=== PATIENT | female | born 1935 | race Caucasian/White ===

== ENCOUNTER → 2016-11-17 | Outpatient (CLI) | payer OTHER, BC ==
[~2016-11-17] MED LIST: ASCO500T16 PO; ASPI81TA21 PO; HYDR-5688 PO; LOSA100T2 PO; MULT-614 PO; MULT-768 PO; NAPR1TAB9 PO; PRAV20TA PO; [UNRECOGNIZED DRUG - CODE] PO
--- NOTE | 2016-11-17 15:29 | MAMMOGRAPHY REPORT ---
BILATERAL DIGITAL SCREENING MAMMOGRAM TOMOSYNTHESIS WITH CAD: 11/17/2016 CLINICAL HISTORY: Routine screening. Patient has no complaints. TECHNIQUE: Breast tomosynthesis in addition to standard 2D mammography was performed. Current study was also evaluated with a Computer Aided Detection (CAD) system. COMPARISON: Comparison is made to exams dated: 12/01/2015 mammogram, 11/17/2015 mammogram, 11/13/2014 mammogram, 11/12/2013 mammogram, 09/27/2012 mammogram, and 09/27/2011 mammogram - [facility] nter. BREAST COMPOSITION: The tissue of both breasts is almost entirely fatty. FINDINGS: No suspicious masses, calcifications, or areas of architectural distortion are noted in ei ther breast. There has been no significant interval change compared to prior exams. IMPRESSION: ACR BI-RADS CATEGORY 1: NEGATIVE There is no mammographic evidence of malignancy. A 1 year screening mammogram is recommended. The pa tient will receive written notification of the results. Approximately 10% of breast cancers are not detected with mammography. A negative mammographic report should not delay biopsy if a clinically suggestive mass is present. Irish Ramos M.D. /:11/17/2016 14:21:37 Large Animal Veterinarian: Betty LOPEZ(Kate)(M), [facility] letter sent: Normal 1/2 BI-RADS Code: ACR BI-RADS Category 1: Negative
== END | disposition home or self-care (01) ==
LOC: C.MAMM 13:20
PROVIDERS: ATTEND Family Medicine
DX: Z12.31 Encounter for screening mammogram for malignant neoplasm of breast (principal)

== ENCOUNTER → 2017-02-08 | Outpatient (CLI) | payer OTHER, BC ==
--- NOTE | 2017-02-08 11:11 | DIAGNOSTIC IMAGING REPORT ---
CHEST 2 VIEWS ROUTINE HISTORY: ACUTE SINUSITIS COMPARISON: Chest 10/02/2013. FINDINGS: The lungs are clear. Cardiac silhouette is normal in size. No pleural effusions. No pneumothorax. IMPRESSION: No acute process. Electronically signed by: Margarito Hung M.D. 02/08/2017 11:09 AM Dictated Date/Time: 02/08/2017 11:07 AM
== END | disposition home or self-care (01) ==
LOC: C.RADBC 10:29
PROVIDERS: ATTEND Family Medicine
DX: J01.90 Acute sinusitis, unspecified (principal)

== ENCOUNTER 2021-11-18 08:48 | Observation (INO) ==
--- NOTE | 2021-11-18 09:07 | Emergency Department Note ---
Impression & Plan Elevated troponin I level, Dyspnea, Acute hypokalemia ED Provider Note NAME: GILMAR CRUZ AGE: 86 SEX: F : 1935 ARRIVES VIA: Walk-In INFORMANT: [Patient][, ] ED PROVIDER(S): [Canelo Ortega MD] Chief Complaint: Shortness of breath, elevated heart rate, outpatient referral patient presents at the behest of her outpatient HPI: GI office Dr. Brandt due to concern for shortness of breath and tachycardia. Patient states that she first developed symptoms may be around midnight this morning but did not think much of it went back to bed but when she was up around 5 she did have some shortness of breath and noticed her heart rate to be in the 130s. Patient [place] any fevers chills or chest pains. Patient does feel better than before. The patient has been undergoing bland soft diet primarily bouillon Jell-O and water in addition to bowel prep as the patient was to have a pending colonoscopy completed for bloating with Dr. Brandt today at 1 PM with [facility]. Patient denies any alcohol or tobacco use or upper respiratory symptoms of infectious nature. Patient denies any leg swelling or calf pain. No prior history of lung disease. The patient did have a cardiac ablation completed 2 months ago at [facility] with Dr. Olea. Patient denies any other acute symptoms at this time. The patient does relate that she did have a recent left foot fracture and has been wearing shoe but denies any calf pain. ROS: See HPI for pertinent positives and negatives. A total of 10 systems were reviewed and otherwise negative. Past medical history: See below Surgical history: See below Social history: See below Physical Exam: GENERAL: NAD, [wearing a mask,] non-toxic. EYE EXAM: Normal conjunctiva. PERRL, no anisocoria and EOM's grossly intact w/o pain. NECK: Supple, no nuchal rigidity, no adenopathy, non-tender. No signs of meningismus. FROM of the neck with good chin to chest and neck extension. No stridor. LUNGS: Clear to auscultation. Normal chest wall mechanics. HEART: NSR, no MRG. ABDOMEN: Abdomen soft, non-tender, normo-active bowel sounds, no masses, no rebound or guarding. BACK: No CVA TTP. SKIN: No rashes and no bruising. UPPER EXTREMITIES: Upper extremities are grossly normal. LOWER EXTREMITIES: Grossly normal, no edema. NEURO EXAM: A&O x3, cranial nerves II-XII grossly intact, normal speech, moves all 4 extremities. Differential diagnoses: Reactive airway disease, pneumonia, pneumothorax, COPD, CHF, infections, cardiac ischemia, pulmonary embolism, musculoskeletal, gastrointestinal, as well as other pathologies. Course: Patient was seen and evaluated the bedside. Full history physical exam was performed. EKG interpreted by me Sinus with first-degree AV block, rate of 93, prolonged [place], normal QRS, normal axis, no obvious ST elevations. Imaging Studies: See Below Cardiac monitoring: An order was placed for continuous cardiac monitoring. The monitor shows a rate of 77 with sinus rhythm. MDM: Patient presents due to concern for shortness of breath and tachycardia. Blood work is obtained the patient was given IV fluids. EKG also obtained along with chest x-ray. I did consider the possibility of DVT given the patient's recent procedure as recent foot fracture so a DVT ultrasound was obtained. Patient does not have any evidence of obvious DVT i.e. asymmetric leg swelling or calf pain at this time. Physical exam is not consistent with aneurysm or dissection. The patient was nontachycardic at the time of presentation. IV fluids were given as the patient may have an element of decreased p.o. intake in addition to the bowel prep causing some associated dehydration this was required prior for her colonoscopy to be performed. Patient's blood work showed a normal white count H&H and platelet count. The patient's kidney function is unremarkable. Mild hypokalemia at 3.2. Patient's urinalysis does not show evidence of obvious infection. Patient's troponin is detectable and the patient's had a prior which was negative. 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 Unsure as whether or not she could have had another run or some sort of arrhythmia that might of caused a slight increase in her troponin but the patient is currently asymptomatic at this time. Chest x-ray was negative. Patient had a negative DVT ultrasound. I did speak the on-call spitalist Dr. Ruff and the patient was admitted to the medicine service. Past Med/Surg History Medical History (Updated 11/18/21 @ 14:29 by Canelo Ortega MD) Arrhythmia "SKIPS BEATS"-f/u dr garber, ps Asthma pt denies; MILD, NO INH Autoimmune disorder NON-SPECIFIC Degenerative disc disease False positive HIV serology Frequent UTI "have them once in awhile" History of COVID-19 05/2021, tested-at [place], she had same symptoms; not hosp; fatigue, cough-lasted 3 weeks>resolved. History of endometriosis Hx of fracture of foot broken 11/11/21, lt foot, currently using a walker Hypertension "described as uncontrolled" Nocturia Urinary urgency Surgical History Difficult airway for intubation REPORTS NEEDED PEDIATRIC ETT FOR PRIOR SURGERY-"very long time ago" History of adenoidectomy History of appendectomy History of arthroscopy LEFT KNEE History of bilateral tubal ligation History of cardiac cath 2015 - [facility] - FAILED STRESS TEST - NO STENTS/ANGIOPLASTY; f/u dr garber, ps History of cardiac radiofrequency ablation 09/21/2021, [place]; f/u dr garber History of cataract surgery Rt./lt. History of colonoscopy History of dilatation and curettage History of tonsillectomy History of tooth extraction Hx of resection of small bowel "done with hysterectomy" Hx of total hysterectomy with removal of both tubes and ovaries Social History Smoking Status: Never smoker Second Hand Exposure: No; Hx Alcohol Use: Yes Alcohol type: wine and hard liquor Hx Substance Use: No Preferred Language: Mohawk Communication Ability: Effective Slab Inspector Required: No Beliefs That Will Affect Care: None Current Living Situation: Spouse Feels Safe at Home: Yes Assistive Devices: Glasses and Walker Allergies Allergies Allergy/AdvReac Type Severity Reaction Status Date / Time cephalexin [From Keflex] Allergy Intermediate Rash Verified 11/13/21 08:20 Iodinated Contrast Media Allergy Intermediate Rash Verified 11/13/21 08:20 Home Meds Home Medications Medication Instructions Recorded Confirmed [facility] 1 tab PO QAM 12/20/17 11/18/21 ascorbic acid (vitamin C) 1,000 mg 1 g PO QAM 12/20/17 11/18/21 tablet (Vitamin C) aspirin 81 mg tablet,delayed 81 mg PO QPM 12/20/17 11/18/21 release glucosamine 1 dose PO BID 12/20/17 11/18/21 HCl-methylsulfonylmethane 1,500 mg-500 mg/30 mL liquid (Glucosamine Msm) hydrochlorothiazide 25 mg tablet 25 mg PO QAM 12/20/17 11/18/21 multivitamin 1 tab PO QAM 12/20/17 11/18/21 pravastatin 10 mg tablet 10 mg PO HS 12/20/17 11/18/21 loperamide 2 mg capsule 2 mg PO Q4H PRN Diarrhea 11/13/21 11/18/21 omeprazole 20 mg capsule,delayed 20 mg PO QAM 11/13/21 11/18/21 release oxybutynin chloride 5 mg tablet 5 mg PO HS 11/13/21 11/18/21 diltiazem HCl 120 mg 120 mg PO DAILY 11/18/21 11/18/21 capsule,extended release 24 hr (Cardizem CD) Results & Data (ED) Vital Signs Vital Signs - 24 hr 11/18/21 08:55 11/18/21 09:08 11/18/21 09:09 Temperature 36.1 C L Temperature Source Temporal Artery Scan Pulse Rate 94 H Pulse Rate [Left Apical] 88 Pulse Rhythm [Left Apical] Regular Pulse Strength [Left Apical] Normal Respiratory Rate 20 16 Respiratory Effort / Characteristics Non-Labored Spontaneous Non-Labored Spontaneous Respiratory Depth Normal Normal Respiratory Pattern Regular Blood Pressure 141/87 H Blood Pressure [Left Arm] 143/96 H Blood Pressure Mean 105 Blood Pressure Mean [Left Arm] 111 Pulse Oximetry 100 100 Oxygen Delivery Method Room Air Room Air Room Air Sepsis Recent Fever Within 48 Hours No Sepsis New/Unexplained Change in Mental Status No Sepsis Action Taken by Nursing No Action Required 11/18/21 09:17 11/18/21 11:42 11/18/21 13:08 Temperature Temperature Source Pulse Rate Pulse Rate [Left Apical] 63 74 Pulse Rhythm [Left Apical] Pulse Strength [Left Apical] Respiratory Rate 16 16 Respiratory Effort / Characteristics Respiratory Depth Respiratory Pattern Blood Pressure Blood Pressure [Left Arm] 145/96 H 193/82 H Blood Pressure Mean Blood Pressure Mean [Left Arm] 112 119 Pulse Oximetry 100 100 96 Oxygen Delivery Method Room Air Sepsis Recent Fever Within 48 Hours Sepsis New/Unexplained Change in Mental Status Sepsis Action Taken by Residential Medications Current Medication List: was personally reviewed by me Laboratory Data Attestation: I reviewed the patient's lab results. Result diagrams: 11/18/21 09:18 11/18/21 09:18 Lab Results 11/18/21 11/18/21 11/18/21 Range/Units 09:18 09:18 13:05 WBC 6.07 (4.8-10.8) K/ul RBC 4.41 (3.93-5.22) M/uL Hgb 14.0 (12.0-16.0) g/dl Hct 39.6 (34.1-44.9) % MCV 89.8 (80.0-100.0) fL MCH 31.7 (25.0-34.0) pg MCHC 35.4 (32.0-36.0) g/dL RDW Std Deviation 39.0 (36.4-46.3) fL RDW Coeff of [place] 11.9 (11.5-14.5) % Plt Count 385 (130-400) K/uL MPV 8.8 L (9.4-12.3) fL Immature Gran % (Auto) 0.3 % Neut % (Auto) 55.1 % Lymph % (Auto) 35.4 % [place] % (Auto) 7.4 % Eos % (Auto) 0.8 % Baso % (Auto) 1.0 % Neut # (Auto) 3.34 (1.4-6.5) K/uL Lymph # (Auto) 2.15 (1.2-3.4) K/uL [place] # (Auto) 0.45 (0.24-0.82) K/uL Eos # (Auto) 0.05 (0-0.50) K/uL Baso # (Auto) 0.06 (0-0.2) K/uL Immature Gran # (Auto) 0.02 (0.00-0.02) K/uL Sodium 138 (136-145) mmol/L Potassium 3.2 L (3.5-5.1) mmol/L Chloride 103 (98-107) mmol/L Carbon Dioxide 25 (21-32) mmol/L Anion Gap 10 (3-11) BUN 11 (6-23) mg/dl Creatinine 0.82 (0.6-1.2) mg/dl Est Cr Clr Drug Dosing 49.7 ml/min Est GFR ( Amer) 76.2 ml/min Est GFR (Non-Af Amer) 65.7 ml/min BUN/Creatinine Ratio 13.4 (10-20) Glucose 113 H (70-99(Fasting)) mg/dl Calcium 9.4 (8.5-10.1) mg/dl Magnesium 1.8 (1.7-2.4) mg/dl Total Bilirubin 0.8 (0.2-1.0) mg/dl AST 14 (13-39) U/L ALT 12 (7-52) U/L Alkaline Phosphatase 58 (34-104) U/L Troponin I High Sens 21.5 H D (0-14) pg/ml Total Protein 7.2 (6.0-8.3) gm/dl Albumin 3.9 (3.4-5.0) gm/dl Globulin 3.3 (2.5-4.0) gm/dl Albumin/Globulin Ratio 1.2 (0.9-2) Urine Color Yellow Urine Appearance Clear (Clear) Urine pH 6.0 (4.5-7.5) Ur Specific [place] 1.004 (1.000-1.030) Urine Protein Negative (Negative) Urine Glucose (UA) Negative (Negative) Urine Ketones Trace H (Negative) Urine Blood Trace H (Negative) Urine Nitrite Negative (Negative) Urine Bilirubin Negative (Negative) Urine Urobilinogen Negative (Negative) Ur Leukocyte Esterase Trace H (Negative) Urine WBC (Auto) 1-5 (0-5) /hpf Urine RBC (Auto) 0-4 (0-4) /hpf U Hyaline Cast (Auto) 0 (0-5) /lpf U Epithel Cells (Auto) 5-10 H (0-5) /lpf Urine Bacteria (Auto) Negative (Negative) SARS-CoV-2, RNA, NAAT (NEGATIVE) 11/18/21 Range/Units Unknown WBC (4.8-10.8) K/ul RBC (3.93-5.22) M/uL Hgb (12.0-16.0) g/dl Hct (34.1-44.9) % MCV (80.0-100.0) fL MCH (25.0-34.0) pg MCHC (32.0-36.0) g/dL RDW Std Deviation (36.4-46.3) fL RDW Coeff of [place] (11.5-14.5) % Plt Count (130-400) K/uL MPV (9.4-12.3) fL Immature Gran % (Auto) % Neut % (Auto) % Lymph % (Auto) % [place] % (Auto) % Eos % (Auto) % Baso % (Auto) % Neut # (Auto) (1.4-6.5) K/uL Lymph # (Auto) (1.2-3.4) K/uL [place] # (Auto) (0.24-0.82) K/uL Eos # (Auto) (0-0.50) K/uL Baso # (Auto) (0-0.2) K/uL Immature Gran # (Auto) (0.00-0.02) K/uL Sodium (136-145) mmol/L Potassium (3.5-5.1) mmol/L Chloride (98-107) mmol/L Carbon Dioxide (21-32) mmol/L Anion Gap (3-11) BUN (6-23) mg/dl Creatinine (0.6-1.2) mg/dl Est Cr Clr Drug Dosing ml/min Est GFR ( Amer) ml/min Est GFR (Non-Af Amer) ml/min BUN/Creatinine Ratio (10-20) Glucose (70-99(Fasting)) mg/dl Calcium (8.5-10.1) mg/dl Magnesium (1.7-2.4) mg/dl Total Bilirubin (0.2-1.0) mg/dl AST (13-39) U/L ALT (7-52) U/L Alkaline Phosphatase (34-104) U/L Troponin I High Sens (0-14) pg/ml Total Protein (6.0-8.3) gm/dl Albumin (3.4-5.0) gm/dl Globulin (2.5-4.0) gm/dl Albumin/Globulin Ratio (0.9-2) Urine Color Urine Appearance (Clear) Urine pH (4.5-7.5) Ur Specific [place] (1.000-1.030) Urine Protein (Negative) Urine Glucose (UA) (Negative) Urine Ketones (Negative) Urine Blood (Negative) Urine Nitrite (Negative) Urine Bilirubin (Negative) Urine Urobilinogen (Negative) Ur Leukocyte Esterase (Negative) Urine WBC (Auto) (0-5) /hpf Urine RBC (Auto) (0-4) /hpf U Hyaline Cast (Auto) (0-5) /lpf U Epithel Cells (Auto) (0-5) /lpf Urine Bacteria (Auto) (Negative) SARS-CoV-2, RNA, NAAT NEGATIVE (NEGATIVE) Administered Medications Discontinued Medications Sodium Chloride (Nss 1000ml) 1,000 mls @ 999 mls/hr IV .[id number] RAFI Stop: 11/18/21 10:15 Last Infusion: 11/18/21 12:44 Dose: 0 mls/hr Documented By: Admin: 11/18/21 09:17 Dose: 999 mls/hr Documented By: LIVE Imaging Data Radiologist's Impression: Chest X-Ray 11/18/21 09:12 XR chest 1V portable CLINICAL HISTORY: Dyspnea TECHNIQUE: Single frontal radiograph of the chest was obtained. Comparison: Comparison is made to right rib series the 2020 FINDINGS: No lines and tubes are seen. Cardiomegaly is noted. Calcified aortic knob is seen. The lungs are clear. No evidence of pleural effusion or pneumothorax. IMPRESSION: No acute chest disease. ACT 112: Negative or not required by law. Electronically signed by: Stevan Whyte M.D. 11/18/2021 10:17 AM Venous Doppler Study 11/18/21 09:16 LEFT LOWER EXTREMITY VENOUS DOPPLER HISTORY: Acute pain and swelling of the left lower leg sob, recent foot frx and cards ablation COMPARISON STUDY: None. FINDINGS: There is normal compressibility, flow, and augmentation within the left lower extremity deep venous system. IMPRESSION: No DVT within the left lower extremity. ACT 112: Negative or not required by law. Electronically signed by: Sav Stephens M.D. 11/18/2021 10:22 AM Discharge Plan Visit Data Chief Complaint: Cardiac Assessment Stated Complaint: pulse 135, sob, lightheaded, ED Provider: Canelo Ortega Discharge Problem: Elevated troponin I level, Dyspnea, Acute hypokalemia Patient Disposition: Admitted As Inpatient Forms Stand Alone Forms: [facility] Prescriptions Prescriptions: No Action multivitamin Tablet 1 tab PO QAM ascorbic acid (vitamin C) [Vitamin C] 1,000 mg Tablet 1 g PO QAM aspirin 81 mg Tablet,Delayed Release (Dr/Ec) 81 mg PO QPM pravastatin 10 mg Tablet 10 mg PO HS hydrochlorothiazide 25 mg Tablet 25 mg PO QAM Glucosamine Msm 1,500-500 mg/30 mL Liquid 1 dose PO BID [facility] 1 tab PO QAM loperamide [Imodium] 2 mg Capsule 2 mg PO Q4H PRN (Reason: Diarrhea) Rx Instructions: administer after each loose stool until symptoms controlled; do not exceed 8 mg per 24 hrs omeprazole 20 mg Capsule,Delayed Release(Dr/Ec) 20 mg PO QAM oxybutynin chloride 5 mg tablet 5 mg PO HS diltiazem HCl [Cardizem CD] 120 mg Capsule,Extended Release 24hr 120 mg PO DAILY Referrals Referrals: Johana Edouard DO [Primary Care Provider] -
[2021-11-18] MEDS ORDERED: SODIUM CHLORIDE 0.9% 1000ML 1,000 ML IV SCH (09:15)
[2021-11-18 09:49] LABS: Basophils # (auto) 0.06 K/uL (0-0.2); Eosinophils # (auto) 0.05 K/uL (0-0.50); Eosinophils % (auto) 0.8 %; Hematocrit (blood only) 39.6 % (34.1-44.9); Immature Granulocytes # (auto) 0.02 K/uL (0.00-0.02); Immature Granulocytes % (auto) 0.3 %; Lymphocytes # (auto) 2.15 K/uL (1.2-3.4); Lymphocytes % (auto) 35.4 %; Mean Corpuscular Hemoglobin 31.7 pg (25.0-34.0); Mean Corpuscular Hgb Conc 35.4 g/dL (32.0-36.0); Mean Corpuscular Volume 89.8 fL (80.0-100.0); Mean Platelet Volume 8.8 fL (9.4-12.3); Monocytes # (auto) 0.45 K/uL (0.24-0.82); Monocytes % (auto) 7.4 %; Neutrophils # (auto) 3.34 K/uL (1.4-6.5); Neutrophils % (auto) 55.1 %; Platelet Count 385 K/uL (130-400); RDW Coefficient of Variation 11.9 % (11.5-14.5); Red Blood Count 4.41 M/uL (3.93-5.22); White Blood Count 6.07 K/ul (4.8-10.8)
--- NOTE | 2021-11-18 10:19 | XRay Report ---
XR chest 1V portable CLINICAL HISTORY: Dyspnea TECHNIQUE: Single frontal radiograph of the chest was obtained. Comparison: Comparison is made to right rib series the 2020 FINDINGS: No lines and tubes are seen. Cardiomegaly is noted. Calcified aortic knob is seen. The lungs are tita r. No evidence of pleural effusion or pneumothorax. IMPRESSION: No acute chest disease. ACT 112: Negative or not required by law. Electronically signed by: Stevan Whyte M.D. 11/18/2021 10:17 AM
[2021-11-18 10:23] LABS: Albumin Globulin Ratio 1.2 (0.9-2); Albumin Level 3.9 gm/dl (3.4-5.0); BUN Creatinine Ratio 13.4 (10-20); Bilirubin,Total 0.8 mg/dl (0.2-1.0); Calcium 9.4 mg/dl (8.5-10.1); Creatinine Clr Calc Pharmacy 49.7 ml/min; Est GFR (African American) 76.2 ml/min; Est GFR (Non-African American) 65.7 ml/min; Globulin 3.3 gm/dl (2.5-4.0); Magnesium 1.8 mg/dl (1.7-2.4); Potassium 3.2 mmol/L (3.5-5.1); Total Protein 7.2 gm/dl (6.0-8.3)
--- NOTE | 2021-11-18 10:23 | Ultrasound Report ---
LEFT LOWER EXTREMITY VENOUS DOPPLER HISTORY: Acute pain and swelling of the left lower leg sob, recent foot frx and cards ablation COMPARISON STUDY: None. FINDINGS: There is normal compressibility, flow, and augmentation within the left lower extremity vladimir p venous system. IMPRESSION: No DVT within the left lower extremity. ACT 112: Negative or not required by law. Electronically signed by: Sav Stephens M.D. 11/18/2021 10:22 AM
[2021-11-18 10:42] LABS: Troponin I High Sensitivity 21.5 pg/ml (0-14)
--- NOTE | 2021-11-18 11:30 | History & Physical Report ---
Date of Service November 18, 2021 Assessment & Plan (1) Palpitations: Plan: Lenore Goncalves is an 86-year-old female with a past medical history of AVNRT status post recent ablation therapy in the last 2 months who presents with chest pain, shortness of breath, palpitations, lightheadedness, and dizziness with a mildly increased troponin and he was recommended for observation for cardiac evaluation. Palpitations lightheadedness, dizziness ? Tacky arrhythmia versus volume depletion with bowel prep - Denies chest pain at bedside HPI No syncope No hypotension at any point, repeated blood pressure measurements between [id number]. Intermittent tachycardia up to 130, 88 at bedside Admitting EKG: Sinus with first-degree AV block, SD 248. No ST segment elevation/depressions. Prior EKG from 08/23/2021 with junctional rhythm. No other EKG available for review. -Patient continued on diltiazem, unsure of which dose. Was on this prior to her ablation. We will temporarily hold given SD block and normal rate. Follow on telemetry Lyme pending CXR: No acute findings No leukocytosis. Hemoglobin 14.0. Sodium normal, potassium low as noted, creatinine 0.82 with normal ratio, glucose 113 Potassium repleted with 40 M EQ's x2 Troponin high-sensitivity 21.5 from prior 9.1 in August. Patient denies chest pain at any point, does endorse shortness of breath which resolved and palpitations Repeat TSH/T4 pending Recently completed a TTE with [facility] system, attempting to obtain records First-degree AV block; history of AVNRT s/p ablation 2 months ago Ablation reportedly completed effectively, but assessment for accessory pathways was terminated due to bradycardia. Attempting to obtain records from [facility] system Lyme pending. No history of 1A antiarrhythmic use, electrolytes normal. With recent ablation for AVNRT Prolonged SD with narrow QRS ?Jerel delay Continue telemetry overnight. If recurrent AVNRT/tachyarrhythmia/second- degree block or other abnormality observed consult cardiology, defer for now and continue holding diltiazem Left lower extremity pain/swelling No DVT on US - W/ fxr metatarsal, neurovascularly intact - Still boot while ambulating - Neurovascularly intact - No acute intervention. APAP for pain control DVT prophylaxis: Lovenox Diet: Regular CODE STATUS: DNR/DNI, discussed with patient and at bedside. Surrogate decision maker and emergency would be her Disposition: Medical with telemetry for arrhythmia monitoring (2) Lightheadedness: (3) HTN (hypertension): (4) 1st degree AV block: History of Present Illness Primary Care Provider: Johana Edouard DO Lenore Goncalves is an 86-year-old female with a past medical history of AVNRT status post recent ablation therapy in the last 2 months who presents with chest pain, shortness of breath, palpitations, lightheadedness, and dizziness with a mildly increased troponin and he was recommended for observation for cardiac evaluation. Hx broken L metatarsal. Lenore reports that she was scheduled for a colonoscopy today. Yesterday she completed a bowel prep. Has been having recurrent problems with bloating/diarrhea/flatulence. Cologuard/FoB negative, no blood in BMs. Clear liquids the whole day, took meds, miralax, and gatorade last night. Loose stools through midnight. Was not feeling well and noted blood pressure was 135/60 and HR ~115. Has had variable heart rate and AVNRt with an ablation 2 months ago. Woke up at 5am morning of admission and felt poorly with racing, pounding heart. Went to the kitchen to check BP which as 160s systolic and pulse was 135. She felt like she almost passed out, but did not lose conciousness. Made it back to bed, slept a little, then went to the bathroom a few more times. Was passing cl ear BMs with no solid pieces at that point. BP came back down and heart rate stabilized between 90-110. Called GI to see if she should keep drinking gatorade adn was recommended to go to the ER and cancelled the colonoscopy. Endorses shortness of breath last night which is not normal for her. SoB was associated with tachycardia. Denies chest pain, endorses palpitations. 1 other episode of palpitations 1 month ago. No history of blood clots. Peeing regularly, no pain. 2-3x daily. Light in color. Ablation was cut short due to bradycardia, completed the main ablation but did not look for accessory pathways per pts . Uses diltiazem (not on med list). Hctz 25mg Aspirin 81 (last took night before last) Pravastatin 10mg Oxybutynin Omeprazole PCP: Dr. Edouard, [facility]. [employer] Dr. Garber. Medical History: Reviewed. HTN, AVNRT no Hx afib/aflutter, ERCP gallbladder duct dilation Medications: Reviewed Surgical History: Reviewed Allergies: Reviewed Social History: No tobacco, EtoH 1 glass of wine intermittently not regularly none in the last month. No Rec drug use. Code Status: Had advanced directive. Surrogate DM juaquin available at (H) [phone] (C) [phone]. DNR/DNI. Allergies Allergy/AdvReac Type Severity Reaction Status Date / Time cephalexin [From Keflex] Allergy Intermediate Rash Verified 11/13/21 08:20 Iodinated Contrast Media Allergy Intermediate Rash Verified 11/13/21 08:20 Home Medications Medication Instructions Recorded Confirmed Type [facility] 1 tab PO QAM 12/20/17 11/18/21 History ascorbic acid (vitamin C) 1,000 mg 1 g PO QAM 12/20/17 11/18/21 History tablet (Vitamin C) aspirin 81 mg tablet,delayed 81 mg PO QPM 12/20/17 11/18/21 History release glucosamine 1 dose PO BID 12/20/17 11/18/21 History HCl-methylsulfonylmethane 1,500 mg-500 mg/30 mL liquid (Glucosamine Msm) hydrochlorothiazide 25 mg tablet 25 mg PO QAM 12/20/17 11/18/21 History multivitamin 1 tab PO QAM 12/20/17 11/18/21 History pravastatin 10 mg tablet 10 mg PO HS 12/20/17 11/18/21 History loperamide 2 mg capsule 2 mg PO Q4H PRN Diarrhea 11/13/21 11/18/21 History omeprazole 20 mg capsule,delayed 20 mg PO QAM 11/13/21 11/18/21 History release oxybutynin chloride 5 mg tablet 5 mg PO HS 11/13/21 11/18/21 History Past Med/Surg History Medical History (Updated 11/18/21 @ 12:04 by Henry Ruff MD) Arrhythmia "SKIPS BEATS"-f/u dr garber, [facility] Asthma pt denies; MILD, NO INH Autoimmune disorder NON-SPECIFIC Degenerative disc disease False positive HIV serology Frequent UTI "have them once in awhile" History of COVID-19 05/2021, tested-at [facility], she had same symptoms; not hosp; fatigue, cough-lasted 3 weeks>resolved. History of endometriosis Hx of fracture of foot broken 11/11/21, lt foot, currently using a walker Hypertension "described as uncontrolled" Nocturia Urinary urgency Surgical History Difficult airway for intubation REPORTS NEEDED PEDIATRIC ETT FOR PRIOR SURGERY-"very long time ago" History of adenoidectomy History of appendectomy History of arthroscopy LEFT KNEE History of bilateral tubal ligation History of cardiac cath 2016 - [facility] - FAILED STRESS TEST - NO STENTS/ANGIOPLASTY; f/u dr garber, [facility] History of cardiac radiofrequency ablation 09/21/2021, [facility]; f/u dr garber History of cataract surgery Rt./lt. History of colonoscopy History of dilatation and curettage History of tonsillectomy History of tooth extraction Hx of resection of small bowel "done with hysterectomy" Hx of total hysterectomy with removal of both tubes and ovaries Social History Smoking Status: Never smoker Second Hand Exposure: No; Hx Alcohol Use: Yes Alcohol type: wine and hard liquor Hx Substance Use: No Preferred Language: American Communication Ability: Effective Rheumatology Nurse Required: No Beliefs That Will Affect Care: None Current Living Situation: Spouse Feels Safe at Home: Yes Assistive Devices: Glasses and Walker Review of Systems Review of Systems: All systems reviewed & are unremarkable except as noted in Subjective Physical Exam Physical Exam: General: A&Ox3. NAD. Cooperative. HEENT: Atraumatic, normocephalic. PERLAA. Pulm: CTAB A&P. -wheezes, -rales, -rhonchi. Symmetrical chest rise. No increased work of breathing. No respiratory distress. Cardiac: RRR, -mrg. Radial pulses intact and symmetrical. Abdominal: Nontender, nondistended, soft. BS present. Ext: Warm, dry. L foot 3-4th proximal digit with contusion. Sensation to soft touch intact in feet and toes bilaterally without asymmetry, ankle dorsiflexion/plantarflexion, hip flexion, methods specialist strength 5/5 bilat. PT, DP, and radial pulses symmetrical and intact. Results & Data Results & Data ([facility]) Vital Signs (Past 12 Hours) Vital Signs Temp Pulse Pulse Resp BP BP Pulse Ox 11/18/21 09:17 100 11/18/21 09:09 11/18/21 09:08 88 16 143/96 H 100 11/18/21 08:55 36.1 C L 94 H 20 141/87 H 100 O2 Del Method 11/18/21 09:17 Room Air 11/18/21 09:09 Room Air 11/18/21 09:08 Room Air 11/18/21 08:55 Room Air PG Care Time/CCT Total # of Minutes Spent Total Time Spent with Patient: Total time spent is greater than 50% in coordination of care (as documented) at patient's floor/unit and/or counseling patient: Coding Level of Care Code INT OBSERVATION CARE 70M LVL 3 Diagnoses Palpitations R00.2 Lightheadedness R42 HTN (hypertension) I10 1st degree AV block I44.0
[2021-11-18 13:27] LABS: Appearance Urine Clear (Clear); Bacteria Urine Automated Negative (Negative); Bilirubin Urine Negative (Negative); Blood Urine Trace (Negative); Cast Urine Automated 0 /lpf (0-5); Color Urine Yellow; Glucose Urine UA Negative (Negative); Ketones Urine Trace (Negative); Leukocyte Esterase Urine Trace (Negative); Nitrite Urine Negative (Negative); Protein Urine Negative (Negative); RBC Urine Automated 0-4 /hpf (0-4); Specific Gravity Urine 1.004 (1.000-1.030); Urobilinogen Urine Negative (Negative)
[2021-11-18] MEDS: POTASSIUM CHLORIDE 20 MEQ/15 ML UDC PO SCH ×2 (14:28→21:34)
[2021-11-18] MEDS ORDERED: NITROGLYCERIN SL 0.4 MG/TAB TAB SL PRN (15:37)
[2021-11-18] MEDS ORDERED: ACETAMINOPHEN 325 MG TAB PO PRN (15:37)
[2021-11-18] MEDS ORDERED: MAGNESIUM HYDROXIDE SUSP 30 ML UDC PO PRN (15:37)
[2021-11-18] MEDS ORDERED: ONDANSETRON INJ 2 MG/ML 2 ML VIAL IV PRN (15:37)
[2021-11-18] MEDS ORDERED: POLYETHYLENE (MIRALAX) 17 GM PACK PO PRN (15:37)
[2021-11-18] MEDS ORDERED: ENOXAPARIN INJ 40 MG/0.4 ML SYR SQ SCH (16:30)
[2021-11-18] MEDS: dilTIAZem HCL 120 MG CAPCR PO SCH (17:22)
[2021-11-18 18:19] LABS: Lyme Ab IgG w/WB Rflx Positive (Negative)
[2021-11-18 18:20] LABS: Lyme Ab IgM w/WB Rflx Equivocal (Negative)
[2021-11-18] MEDS ORDERED: MELATONIN 3 MG TAB PO PRN (19:39)
[2021-11-18] MEDS ORDERED: ASPIRIN 81 MG ECTAB PO SCH (21:00)
[2021-11-18] MEDS ORDERED: OXYBUTYNIN CHLORIDE 5 MG TAB PO SCH (21:00)
[2021-11-18] MEDS ORDERED: PRAVASTATIN SOD 10 MG TAB PO SCH (21:00)
[2021-11-19 03:16] LABS: Basophils # (auto) 0.09 K/uL (0-0.2); Basophils % (auto) 1.2 %; Eosinophils # (auto) 0.18 K/uL (0-0.50); Eosinophils % (auto) 2.4 %; Hematocrit (blood only) 33.3 % (34.1-44.9); Hemoglobin 11.4 g/dl (12.0-16.0); Immature Granulocytes # (auto) 0.02 K/uL (0.00-0.02); Immature Granulocytes % (auto) 0.3 %; Lymphocytes % (auto) 48.6 %; Mean Corpuscular Hemoglobin 31.1 pg (25.0-34.0); Mean Corpuscular Hgb Conc 34.2 g/dL (32.0-36.0); Mean Corpuscular Volume 90.7 fL (80.0-100.0); Mean Platelet Volume 8.8 fL (9.4-12.3); Monocytes # (auto) 0.57 K/uL (0.24-0.82); Monocytes % (auto) 7.7 %; Neutrophils # (auto) 2.95 K/uL (1.4-6.5); Neutrophils % (auto) 39.8 %; Platelet Count 322 K/uL (130-400); RDW Coefficient of Variation 12.1 % (11.5-14.5); RDW Standard Deviation 40.5 fL (36.4-46.3); Red Blood Count 3.67 M/uL (3.93-5.22); White Blood Count 7.41 K/ul (4.8-10.8)
[2021-11-19 03:29] LABS: BUN Creatinine Ratio 12.2 (10-20); Calcium 8.4 mg/dl (8.5-10.1); Creatinine Clr Calc Pharmacy 49.7 ml/min; Est GFR (African American) 76.2 ml/min; Est GFR (Non-African American) 65.7 ml/min; Magnesium 1.8 mg/dl (1.7-2.4); Potassium 3.8 mmol/L (3.5-5.1)
--- NOTE | 2021-11-19 05:53 | Electrocardiogram Report ---
Test Reason : Blood Pressure : / mmHG Vent. Rate : 093 BPM Atrial Rate : 093 BPM P-R Int : 248 ms QRS Dur : 092 ms QT Int : 400 ms P-R-T Axes : 085 071 071 degrees QTc Int : 498 ms Sinus rhythm with 1st degree A-V block Prolonged QT When compared with ECG of 23-AUG-2021 10:10, Sinus rhythm has replaced Junctional rhythm QT has lengthened Confirmed by Richar Blakely ([id number]) on 11/19/2021 5:53:17 AM Referred By: Confirmed By:Richar Blakely
[2021-11-19] MEDS ORDERED: DOXYCYCLINE HYCLATE 100 MG in DEXTROSE 5% 100 ML IV ONE (08:00)
[2021-11-19] MEDS: dilTIAZem HCL 120 MG CAPCR PO SCH (08:39)
[2021-11-19] MEDS ORDERED: PANTOprazole 40 MG TAB PO SCH (09:00)
[2021-11-19] MEDS ORDERED: hydroCHLOROthiazide 25 MG TAB PO SCH (09:00)
[2021-11-19] MEDS ORDERED: ASCORBIC ACID 500 MG TAB PO SCH (09:00)
--- NOTE | 2021-11-19 11:01 | Discharge Summary ---
Date of Service November 19, 2021 Admission HPI Per Admitting Provider Lenore Goncalves is an 86-year-old female with a past medical history of AVNRT status post recent ablation therapy in the last 2 months who presents with chest pain, shortness of breath, palpitations, lightheadedness, and dizziness with a mildly increased troponin and he was recommended for observation for cardiac evaluation. Hx broken L metatarsal. Lenore reports that she was scheduled for a colonoscopy today. Yesterday she completed a bowel prep. Has been having recurrent problems with bloating/diarrhea/flatulence. Cologuard/FoB negative, no blood in BMs. Clear liquids the whole day, took meds, miralax, and gatorade last night. Loose stools through midnight. Was not feeling well and noted blood pressure was 135/60 and HR ~115. Has had variable heart rate and AVNRt with an ablation 2 months ago. Woke up at 5am morning of admission and felt poorly with racing, pounding heart. Went to the kitchen to check BP which as 160s systolic and pulse was 135. She felt like she almost passed out, but did not lose conciousness. Made it back to bed, slept a little, then went to the bathroom a few more times. Was passing clear BMs with no solid pieces at that point. BP came back down and heart rate stabilized between 90-110. Called GI to see if she should keep drinking gatorade adn was recommended to go to the ER and cancelled the colonoscopy. Endorses shortness of breath last night which is not normal for her. SoB was associated with tachycardia. Denies chest pain, endorses palpitations. 1 other episode of palpitations 1 month ago. No history of blood clots. Peeing regularly, no pain. 2-3x daily. Light in color. Ablation was cut short due to bradycardia, completed the main ablation but did not look for accessory pathways per pts . Uses diltiazem (not on med list). Hctz 25mg Aspirin 81 (last took night before last) Pravastatin 10mg Oxybutynin Omeprazole PCP: Dr. Edouard, [facility] [place]. [employer]ops Dr. Mora. Medical History: Reviewed. HTN, AVNRT no Hx afib/aflutter, ERCP gallbladder duct dilation Medications: Reviewed Surgical History: Reviewed Allergies: Reviewed Social History: No tobacco, EtoH 1 glass of wine intermittently not regularly none in the last month. No Rec drug use. Code Status: Had advanced directive. Surrogate DM juaquin available at H) [phone] (C) [phone]. DNR/DNI. Principal Diagnosis Following completion, hypokalemia in the setting of bowel prep Discharge Exam General: A&Ox3. NAD. Cooperative. HEENT: Atraumatic, normocephalic. Patient and hearing grossly intact. No visual field cuts. Pupils equal and reactive to light Pulm: CTAB A&P. -wheezes, -rales, -rhonchi. Symmetrical chest rise. No increase in work of breathing. No respiratory distress. Cardiac: RRR, -mrg. Radial pulses intact and symmetrical. Abdominal: Nontender, nondistended, soft. BS present. Extremities: Warm, dry. No rashes. Sensation soft touch intact in hands and feet. Regional Program Manager strength, elbow flexion, hip flexion intact and symmetrical. Discharge Data Allergies Allergy/AdvReac Type Severity Reaction Status Date / Time cephalexin [From Keflex] Allergy Intermediate Rash Verified 11/13/21 08:20 Iodinated Contrast Media Allergy Intermediate Rash Verified 11/13/21 08:20 Consultations 11/18/21 11:21 ED Decision to Admit Stat Ordered Studies 11/18/21 09:16 US venous doppler LE Stat Hospital Course (1) Palpitations: Lenore Goncalves is an 86-year-old female with a past medical history of AVNRT st atus post recent ablation therapy in the last 2 months who presents with chest pain, shortness of breath, palpitations, lightheadedness, and dizziness with a mildly increased troponin and he was recommended for observation for cardiac evaluation. To do as outpatient: 1. Follow back up with GI for colonoscopy. With next bowel prep recommend additional potassium supplementation. Consider Suprep/Sutab over Gatorade/MiraLAX prep given poor tolerance 2. Follow-up on final Lyme Western blot confirmation results 3. Routine follow-up with PCP and cardiology Palpitations lightheadedness, dizziness Likely hypokalemia and volume depletion with bowel prep - Denies chest pain at bedside HPI No syncope No hypotension at any point, repeated blood pressure measurements between [id number]. Intermittent tachycardia up to 130, 88 at bedside Admitting EKG: Sinus with first-degree AV block, VA 248. No ST segment elevation/depressions. Prior EKG from 08/23/2021 with junctional rhythm. No other EKG available for review. -Patient continued on diltiazem, unsure of which dose. Was on this prior to her ablation. Lyme blot pending. IgG positive, IgM equivocal. Patient endorses past Lyme e xposure and treatment CXR: No acute findings No leukocytosis. Hemoglobin 14.0. Sodium normal, potassium low as noted, creatinine 0.82 with normal ratio, glucose 113 Potassium repleted with 40 M EQ's x2, subsequently normalized Troponin high-sensitivity 21.5 from prior 9.1 in August, peaked and down trended. Patient denies chest pain at any point, does endorse shortness of breath which resolved and palpitations First-degree AV block; history of AVNRT s/p ablation 2 months ago Ablation reportedly completed effectively, but assessment for accessory pathways was terminated due to bradycardia. Attempting to obtain records from [facility] system Lyme IgG positive and equivocal IgM. Patient with history of past Lyme treatment. Discussed risk/benefits of treatment with doxycycline, given equivocal IgM and past exposure patient strongly preferred to wait for confirmation Western blot testing before starting doxycycline. We will follow- up with final results at PCP visit.. No history of 1A antiarrhythmic use, electrolytes normal. With recent ablation for AVNRT Prolonged VA with narrow QRS ?Jerel delay No dropped beats or tachyarrhythmia on overnight telemetry. Discussed with cardiology, recommended to continue diltiazem and have outpatient follow-up at this time. Symptoms likely due to bowel prep. Left lower extremity pain/swelling No DVT on US - W/ fxr metatarsal, neurovascularly intact - Still boot while ambulating - Neurovascularly intact - No acute intervention. APAP for pain control DVT prophylaxis: Lovenox Diet: Regular CODE STATUS: DNR/DNI, discussed with patient and at bedside. Surrogate decision maker and emergency would be her Disposition: Medical with telemetry for arrhythmia monitoring (2) Lightheadedness: (3) HTN (hypertension): (4) 1st degree AV block: Total Time Total Time Spent Total Time Spent (In Minutes): Time spend day of discharge 31 minutes including direct patient care, documentation, review of labs and images, and coordination of care. Discharge Plan Discharge Items Patient Disposition: Home - Self-Care Reason For Visit: CHEST PAIN EVAL Discharge Diagnosis: Presyncope, Hypokalemia Activity: Resume your previous activity Non-emergency contact: Primary Care Provider, Devops and Regional Education Manager Call non-emergency contact if: you have any medication questions and your symptoms worsen Follow-up/Referrals: Johana Edouard DO [Primary Care Provider] - Diet: Heart Healthy Addtl Attending Provider Instructions: You were seen in the hospital for lightheadedness/dizziness and for a cardiac evaluation. Your EKG, and electrical tracing of your heart rhythm, did not show any acute concerning abnormalities. Monitoring of your heart rhythm overnight did not show any evidence of abnormal/fast heart rate or dropped/missed heartbeats. You had a low potassium level, likely due to the colonoscopy prep completed just before admission. This normalized with gentle repletion. Your case was discussed with Dr. Mora, was not recommended to hold diltiazem at this time. You had a equivocally positive IgM, and a positive Lyme IgG. This can suggest subacute infection with Lyme which can cause a variety of conditions including heart block. The risk/benefits of antibiotic treatment with doxycycline were discussed with your bedside. Given your past exposure and equivocal IgM, you preferred to wait until Western blot confirmation testing was returned to start antibiotic treatment. Please discuss the final results of your Lyme testing with your PCP at follow-up. Your hemoglobin on admission was 14, this was likely elevated due to dehydration and decreased to 11.4 after fluids and conservative care, which was within one- point of your prior baseline. Should have follow-up blood work in 1 week performed at your primary care physician follow-up including a CBC and BMP. If you develop any new or worsening symptoms including fever, chills, sweats, chest pain, chest pressure, difficulty breathing, uncontrolled nausea/vomiting, rash, wheezing, passing out or nearly passing out, bleeding, black/bloody bowel movements, or other new or concerning symptoms please call your primary care physician, or call 911 for re-evaluation in the emergency department if you are very concerned. Pending Studies at Discharge: No Stand-Alone Forms: My [facility], Smoking Cessation Medications and DC Order Prescriptions: Continued multivitamin Tablet 1 tab PO QAM ascorbic acid (vitamin C) [Vitamin C] 1,000 mg Tablet 1 g PO QAM aspirin 81 mg Tablet,Delayed Release (Dr/Ec) 81 mg PO QPM pravastatin 10 mg Tablet 10 mg PO HS hydrochlorothiazide 25 mg Tablet 25 mg PO QAM Glucosamine Msm 1,500-500 mg/30 mL Liquid 1 dose PO BID [facility] 1 tab PO QAM loperamide [Imodium] 2 mg Capsule 2 mg PO Q4H PRN (Reason: Diarrhea) Rx Instructions: administer after each loose stool until symptoms controlled; do not exceed 8 mg per 24 hrs omeprazole 20 mg Capsule,Delayed Release(Dr/Ec) 20 mg PO QAM oxybutynin chloride 5 mg tablet 5 mg PO HS diltiazem HCl [Cardizem CD] 120 mg Capsule,Extended Release 24hr 120 mg PO DAILY Discharge Orders: Discharge Order (Routine); Ordered 11/19/21 Ordered By: Henry Ruff Admission Data Admit Date/Time: 11/18/21 11:32 Attending Provider: Henry Ruff Admit Provider: Henry Ruff Primary Care Provider: Johana Edouard Other Providers: Henry Ruff Coding Level of Care Code D/C DAY MANAGEMENT >30 MINS Diagnoses Palpitations R00.2 Lightheadedness R42 HTN (hypertension) I10 1st degree AV block I44.0
[2021-11-21 01:26] LABS: 18KDIGG Band NON-REACTIVE; 23KDIGG Band NON-REACTIVE; 23KDIGM Band NON-REACTIVE; 28KDIGG Band NON-REACTIVE; 30KDIGG Band NON-REACTIVE; 39KDIGG Band NON-REACTIVE; 39KDIGM Band NON-REACTIVE; 41KDIGG Band REACTIVE; 41KDIGM Band NON-REACTIVE; 45KDIGG Band NON-REACTIVE; 58KDIGG Band REACTIVE; 66KDIGG Band NON-REACTIVE; 93KDIGG Band REACTIVE; Lyme Antibodies, WB IgG NEGATIVE (NEGATIVE); Lyme Antibodies, WB IgM NEGATIVE (NEGATIVE)
== END 2021-11-19 11:25 | disposition home or self-care (01) ==
LOC: ED 08:48 → 2N 08:48

== ENCOUNTER 2023-08-01 07:14 | Inpatient (IN) ==
--- OUTSIDE RECORDS SUMMARY | 2023-08-01 07:31 | External Medical Summary | Continuity of Care Document ---
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 Role Phone Johana Edouard Primary Care Physician [phone] [id number] Date(s): 06/27/23 - 06/27/[address] [place] [address], [address] [place] [address] [place] [phone] Encounter Diagnosis Maculopapular rash(Discharge Diagnosis) - 06/27/23 Discharge Disposition: Home or Self Care Attending Physician: DO Edouard Kristen M Referring Physician: DO Edouard Kristen M Allergies, Adverse Reactions, Alerts Substance Reaction Severity Status Keflex Rash Active contrast media (iodine-based) hives Active Toprol-XL unknown Active Allergy Not found in Search 1 Rash Active 1Poison rut Assessment and Plan Extracted from: Title:Office Visit Note Author:DO Hudson Vinay Date:06/27/23 1.Maculopapular rash acute uncomplicated -unclear etiology - most likely contact dermatitis from unknown cause -rx triamcinolone 0.1% BID -advised addition of daily oral antihistamine -f/u prn - if no resolve will consider a higher potency topical steroid Immunizations Given and Recorded Vaccine Date Status Refusal Reason RSV vaccine preF3, recombinant 12/11/22 Recorded RSV vaccine, preF A-preF B, recombinant 1 12/11/22 Recorded influenza virus vaccine, inactivated 12/11/22 Adan rded influenza virus vaccine, inactivated 12/14/21 Adan rded influenza virus vaccine, inactivated 12/08/20 Adan rded influenza virus vaccine, inactivated 11/27/19 Adan rded influenza virus vaccine, inactivated 11/16/18 Give n influenza virus vaccine, inactivated 12/19/17 Give n influenza virus vaccine, inactivated 12/06/16 Give n influenza virus vaccine, inactivated 12/03/15 Give n influenza virus vaccine, inactivated 12/11/14 Give n influenza virus vaccine, inactivated 11/14/13 Give n influenza virus vaccine, inactivated 11/16/12 Give n influenza virus vaccine, inactivated 11/18/11 Give n SARS-CoV-2 mRNA (Pfizer 12+) bivalent 12/11/22 Rec orded SARS-CoV-2 mRNA (Pfizer 12+) bivalent 2 11/24/21 R ecorded SARS-CoV-2 (COVID-19) mRNA-1273 vaccine 3 12/26/20 Recorded SARS-CoV-2 (COVID-19) mRNA-1273 vaccine 04/24/20 R ecorded SARS-CoV-2 (COVID-19) mRNA-1273 vaccine 03/27/20 R ecorded zoster vaccine, inactivated 12/25/18 Recorded pneumococcal 13-valent vaccine 10/02/15 Given zoster vaccine live 11/21/08 Recorded tetanus/diphtheria/pertuss, acel (Tdap) 09/06/07 R ecorded pneumococcal 23-valent vaccine 08/21/96 Recorded 1Result Comment: wrong medication 2Result Comment: 2021-12-21: Historical information-source unspecified 3Result Comment: 2021-07-22: Historical information-source unspecified Medications aspirin 81 mg oral tablet Start: 03/23/10 17:41:00, 1 tab, PO, Daily, tab Start Date: 03/23/10 Status: Ordered Centrum Silver Women's Start: 09/28/11 10:44:00, 1 tab, PO, Daily Start Date: 09/28/11 Status: Ordered DilTIAZem (Eqv-Cardizem CD) 120 mg/24 hours oral capsule, extended release Start: 12/22/22 9:02:00 EDT, 1 cap, PO, Daily, Disp# 90 cap, Refills: 3, Pharmacy: [facility] Start Date: 12/22/22 Status: Ordered Gaviscon Extra Strength Start: 05/06/20 14:01:00 EDT Start Date: 05/06/20 Status: Ordered glucosamine hydrochloride 1500 mg oral tablet Start: 05/18/10 13:44:00, 1 tab, PO, bid, MSM 1500mg Start Date: 05/18/10 Status: Ordered hydroCHLOROthiazide 25 mg oral tablet Start: 08/16/22 15:07:00 EDT, 1 tab, PO, Daily, Disp# 90 tab, Refills: 3, [facility] Start Date: 08/16/22 Status: Ordered Imodium Start: 07/21/21 10:32:00 EDT, 2 mg =, PO, q4h, PRN: as needed for loose stool Start Date: 07/21/21 Status: Ordered [facility] Start: 01/31/14 15:06:00, [facility], unknown, Daily Start Date: 01/31/14 Status: Ordered omeprazole 20 mg oral delayed release capsule Start: 12/22/22 9:02:00 EDT, 1 cap, PO, Daily, Disp# 90 cap, Refills: 3, Pharmacy: [facility] Start Date: 12/22/22 Status: Ordered oxyBUTYnin 5 mg oral tablet Start: 12/22/22 9:02:00 EDT, 1 tab, PO, Daily, Disp# 90 tab, Refills: 3, PRN: as needed for urinarydiscomfort, Pharmacy: [facility] Start Date: 12/22/22 Status: Ordered pravastatin 10 mg oral tablet Start: 05/25/23 15:26:00 EDT, 1 tab, PO, Daily, Disp# 90 tab, Refills: 3, Pharmacy: [facility] Start Date: 05/25/23 Status: Ordered triamcinolone 0.1% topical cream Start: 06/27/23 15:49:00 EDT, 1 appl, topical, bid, Disp# 30 g, Refills: 1, Pharmacy: [facility][id number] Start Date: 06/27/23 Status: Ordered Tylenol Start: 07/09/20 8:33:00 EDT Start Date: 07/09/20 Status: Ordered Vitamin C Start: 03/23/10 17:39:00, 500 mg =, PO, Daily Start Date: 03/23/10 Status: Ordered Mental Status 06/27/23 Barriers to Learning one year None evide nt Mandatory Health Literacy Documentation Yes Health Literacy Communication Barriers N ever Primary Language Macanese Problem List Condition Confirmation Course Effective Dates Status H ealth Status Informant Actinic keratosis Confirmed Active Anemia Confirmed Active PAT (paroxysmal atrial tachycardia) Confirmed Active 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 Dilated bile duct Confirmed Active Accelerated junctional rhythm Confirmed Active Fall Confirmed Active HTN (hypertension) Confirmed 04/06/12 Active Impaired fasting glucose Confirmed 11/13/09 Active Joint pain Confirmed Active MIXED HYPERLIPIDEMIA Confirmed 11/13/09 Active MVP - Mitral valve prolapse Confirmed Active Postmenopausal bleeding Confirmed Active Renal insufficiency Confirmed Active Skin lesion Confirmed Active SVT (supraventricular tachycardia) Confirmed Active Diagnosis Diagnosis Type Effective Dates Health Status Clinical Service Informant Maculopapular rash Discharge Diagnosis 06/27/23 Procedures Procedure Date Related Diagnosis Body Site Status MRI of abdomen 1 03/22/22 Complete d X-ray of left foot 2 11/12/21 Comp leted MRCP - Magnetic resonance cholangiopancreatography 3 03/02/21 Compl eted Shave biopsy and cauterization of skin 01/31/19 Completed Mammogram 4 11/29/18 Completed Mammogram 11/17/16 Completed Ultrasound 5 12/01/15 Completed Mammogram 11/17/15 Completed Mammogram - screening 11/13/14 Com pleted DEXA - Dual energy X-ray sylvie ton absorptiometry 10/20/10 Completed Appendectomy Completed bladder suspension Comple ron bowel ressection/bowel obstruction Completed D&C - Dilatation and curettage Completed right knee meniscal repair Completed VALENTÍN BSO Completed 11) Stable to slight improvement in th emild intra and extra hepatic bile duct dilatation for the pt's age. 2) No filling defects within the common bile duct. 3) No gallbladder wal thickening. No gallstones. 2Impression: Acute minimally displaced fracture of the left fifth metataral. This finding will be called/faxed to the ordering provider at the time of dictation. 31. Persistent dilatation of the common bile duct measuring 12 mm. However, there is no evidence of choledocholithiasis. 2. There is no gross mass at the head of the pancreas. 3. The findings are probably physiologic related to the patient's age. 4No mammographic evidence of malignancy, 1 year screening recommended. 5right breeast, no evidence of malignancy; resume annual screening mammograms Vital Signs Most recent to oldest [Reference Range]: 1 Patient Weight 65.3 kg (06/27/23 3:23 PM) Temperature [36.5-37.9 DegC] 36.1 DegC *LOW* (06/27/23 3:23 PM) Heart Rate 86 bpm (06/27/23 3:23 PM) Blood Pressure 160/70mmHg (06/27/23 3:23 PM) Cuff Pulse Pressure 90 mmHg (06/27/23 3:23 PM) Social History Social History Type Response Smoking Status Never smoked cigaret conchita Sex Female FCM Outpt Note * DO Edouard Kristen M: MODIFY DO Edouard Kristen M: MODIFY Event Display: [facility]CM Outpt Note Authored Date: [id number] Chief Complaint Rash on back. Started on Tuesday. Itchy. History of Present Illness 88 yo female presents to clinic for rash. -4 days ago started having diffuse back itchiness including bilateral flanks. Her lookedat her back and saw a scattered pink rash which progressed to a bright red color. Rash is flat, notbumpy. Rash is less bright today but still very itchy. -tried using 1% hydrocortisone ointment and Benadryl which did not help at all -no recent illness -no new bedding, clothing, detergents, soaps -no new medications -no recent travel -no tick bites -does go to the pool 6x/wk but has gone to the same pool for years Review of Systems As stated above in HPI and below: Constitutional: denies fevers, chills, fatigue HEENT: denies congestion, sore throat CV: denies chest pain, palpitations Resp: denies shortness of breath, cough GI: denies abdominal pain,nausea, vomiting, constipation, diarrhea : denies pain with urination, change in urinary frequency Neuro: denies new numbness, tingling, weakness Physical Exam Vitals & Measurements T:36.1C HR:86(Monitored) BP:160/70 SpO2:96% WT:65.300kg(Dosing) WT:65.3kg PHQ2 Data(Data Documented on:06/27/2023 15:22) Emotional health assessment NEGATIVE General:in no acute distress, pleasant Skin: diffuse maculopapular rash diffusely over back which is nontender to touch Assessment/Plan 1.Maculopapular rash acute uncomplicated -unclear etiology - most likely contact dermatitis from unknown cause -rx triamcinolone 0.1% BID -advised addition of daily oral antihistamine -f/u prn - if no resolve will consider a higher potency topical steroid Attestation I have reviewed and discussed the history and physical findings with the residentand agree with themulticare health impression and plan. Agree with topical treatment Problem List/Past Medical History Ongoing Accelerated junctional rhythm Actinic keratosis Anemia AVNRT (AV brenda re-entry tachycardia) Dilated bile duct Fall HTN (hypertension) Impaired fasting glucose Joint pain MIXED HYPERLIPIDEMIA MVP - Mitral valve prolapse PAT (paroxysmal atrial tachycardia) Postmenopausal bleeding Renal insufficiency Skin lesion SVT (supraventricular tachycardia) Historical Acute sinusitis BENIGN ESSENTIAL HYPERTENSION COMPLICATING , CHILDBIRTH, AND THE PUERPERIUM Contact dermatitis Diarrhea Flatus Foot fracture, left Fx metatarsal LYME DISEASE Medicare annual wellness visit, initial Medicare annual wellness visit, subsequent Muscle cramp Pain in the abdomen Poison rut dermatitis Rash Right leg pain Routine adult health maintenance UTI symptoms Procedure/Surgical History MRI of abdomen| Service Date: 03/22/2022X-ray of left foot| Service Date: 11/12/2021MRCP -Magnetic resonance cholangiopancreatography| Service Date: 03/02/2021have biopsy and cauterization of skin| Service Date: 01/31/2019Mammogram| Service Date: 11/29/2018Mammogram| Service Date: 11/17/2016Ultrasound| Service Date: 12/01/2015Mammogram| Service Date: 11/17/2015Mammogram - screening| Service Date: 11/13/2014DEXA - Dual energy X-ray photon absorptiometry| Service Date: 10/20/2010owel ressection/bowel obstructionright knee meniscal repairbladder suspension Appendectomy VALENTÍN BSO D&C - Dilatation and curettage Medications acetaminophen(Tylenol) aluminum hydroxide-magnesium carbonate(Gaviscon Extra Strength) ascorbic acid(Vitamin C), 500 mg, PO, Daily aspirin(aspirin 81 mg oral tablet), 1 tab, PO, Daily dilTIAZem(DilTIAZem (Eqv-Cardizem CD) 120 mg/24 hours oral capsule, extended release), 120 mg= 1 cap, PO, Daily, 3 refills glucosamine(glucosamine hydrochloride 1500 mg oral tablet), 1500 mg= 1 tab, PO, bid hydroCHLOROthiazide(hydroCHLOROthiazide 25 mg oral tablet), 25 mg= 1 tab, PO, Daily, 3 refills loperamide(Imodium), 2 mg, PO, q4h, PRN multivitamin with minerals(Centrum Silver Women's), 1 tab, PO, Daily omeprazole(omeprazole 20 mg oral delayed release capsule), 20 mg= 1 cap, PO, Daily, 3 refills oxyBUTYnin(oxyBUTYnin 5 mg oral tablet), 5 mg= 1 tab, PO, Daily, PRN, 3 refills pravastatin(pravastatin 10 mg oral tablet), 1 tab, PO, Daily triamcinolone topical(triamcinolone 0.1% topical cream), 1 appl, topical, bid, 1 refills unknown medication(Space Monkey), unknown, Daily Allergies Allergy Not found in [facility] Tape TVNew [facility] Write.myKANSAS CITY [facility] MEDICAL CENTERunkno contrast media (iodine-based)hives Social History Smoking Status Never smoked cigarettes Tobacco - Denies Tobacco Use Use:Never smoker Family History Diabetes: PGM. Heart attack: Father. High Blood Pressure: Mother. Lung cancer..: MGF. Stroke: Father. Health Status Family Member(s) Immunizations Vaccine Date Status RSV vaccine preF3, recombinant 12/11/2022 Recorded influenza virus vaccine, inactivated 12/11/2022 Recorded SARS-CoV-2 mRNA (Pfizer 12+) bivalent 12/11/2022 Recorded influenza virus vaccine, inactivated 12/14/2021 Recorded SARS-CoV-2 mRNA (Pfizer 12+) bivalent 11/24/2021 Recorded Comments : 2021-12-21: Historical information-source unspecified SARS-CoV-2 (COVID-19) mRNA-1273 vaccine 12/26/2020 Recorded Comments : 2021-07-22: Historical information-source unspecified influenza virus vaccine, inactivated 12/08/2020 Recorded SARS-CoV-2 (COVID-19) mRNA-1273 vaccine 04/24/2020 Recorded SARS-CoV-2 (COVID-19) mRNA-1273 vaccine 03/27/2020 Recorded influenza virus vaccine, inactivated 11/27/2019 Recorded zoster vaccine, inactivated 12/25/2018 Recorded influenza virus vaccine, inactivated 11/16/2018 Given influenza virus vaccine, inactivated 12/19/2017 Given influenza virus vaccine, inactivated 12/06/2016 Given influenza virus vaccine, inactivated 12/03/2015 Given pneumococcal 13-valent vaccine 10/02/2015 Given influenza virus vaccine, inactivated 12/11/2014 Given influenza virus vaccine, inactivated 11/14/2013 Given influenza virus vaccine, inactivated 11/16/2012 Given influenza virus vaccine, inactivated 11/18/2011 Given zoster vaccine live 11/21/2008 Recorded tetanus/diphtheria/pertuss, acel (Tdap) 09/06/2007 Recorded pneumococcal 23-valent vaccine 08/21/1996 Recorded Recommendations Health Maintenance Pending(in the next year) OverDue Medicare Annual Wellness Visit due12/21/22and every 1year Due Adult COVID-19 Vaccination due06/27/23Unknown Frequency Adult Social Determinants of Health Screening due06/27/23Unknown Frequency Adult Tdap/Td Vaccine due06/27/23Unknown Frequency Falls Plan of Care due06/27/23Unknown Frequency Pneumococcal Vaccine Older Adults due06/27/23One-time only Shingles Vaccine due06/27/23One-time only Due In Future Adult Influenza Vaccine not due until08/21/23and every 1year Satisfied(in the past 1 year) Satisfied Adult COVID-19 Vaccination on12/11/22.Satisfied by VERITO Marc Donna Adult Influenza Vaccine on12/11/22.Satisfied by VERITO Marc Donna Body Mass Index on12/01/22.Satisfied by YUN Alcala Bobbi Breast Cancer Screening on12/10/22.Satisfied by VERITO Chávez Lynnae Lipid Screening on12/23/22.Satisfied by Contributor_system, [employer] Electronic Signature on File Electronically Reviewed/Signed by: Fabian Hudson MD Author Signature Dt/Tm:06/27/2023 03:57 PM Resident Department of Family Medicine Electronically Reviewed/Signed by: DO Zhao Matta Signature Dt/Tm: 06/27/2023 04:12 PM Department of Family Medicine [facility] Patient Care team information Care Team Personnel Name: MD Cook Jonathan D Position: Physician - Family Med Member Role: Lifetime Relationship Address: Address: [address] [place] [address] Name: NITIN Vance Tara Position: Nurse Pract - Family Med Member Role: Lifetime Relationship Address: Address: [address] [facility] [place] [address] Name: DO Edouard Kristen M Position: Physician - Family Med Member Role: Lifetime Relationship Address: Address: [address] [place] [address] Care Team Related Persons Name: STEVEN CRUZ Address: home NO ADDRESS PROVIDED [facility] [phone] Name: STEVEN CRUZ Address: [facility] Address: home [address] [place], [place] [id number]"
--- NOTE | 2023-08-01 07:34 | Emergency Department Note ---
Impression & Plan Non-ST elevation [place] (NSTEMI) ED Provider Note Name: GILMAR CRUZ Age: 88 Sex: Female Arrives Via: Walk-In Informant: Patient & husabnd ED Provider: Sanjiv Kerr MD Chief Complaint: Chest pain Impression: As per impressions above Medical Decision Making: Pleasant 88-year-old female arrives for evaluation of chest pain. Patient notes that for the last 3 to 4 days worsening substernal chest pain. No significant associated symptoms other than some lightheadedness the last few days. Pain throughout the evening thus came to ER but pain has resolved on arrival. Patient looks well other than a bit anxious. Mild hypertension. Initial EKG does show some concerning finding for ischemia though no overt STEMI. With no current chest pain and ongoing several days felt await labs and cardiology input. Troponin is significantly elevated. Reviewed with her auditor/quality who agrees with plan for heparin and aspirin and he will touch base with interventionalist. Hospitalist consulted as well who bring patient in for further management. I did consent patient verbally to heparin. Denies any falls, trauma, injuries. No headaches and no recent bleeding or bruising. Denies any epigastric discomfort or history of stomach ulcers. Triage/Nursing Notes reviewed by Me Differential:Cardiac ischemia, aortic dissection, pulmonary embolism, pneumothorax, pneumonia, pericarditis, myocarditis, esophageal rupture, GERD, cholecystitis, pancreatitis, musculoskeletal, as well as other pathologies. Vital Signs: reviewed and remarkable for mild HTN Interventions: Asa 324mg PO, Heparin bolus/drip Labs:ED labs Reviewed by me and remarkable for elevated troponin Imaging:X ray results are stated below per my interpretation: Chest: 1 view: No infiltrate, no effusion, normal cardiac border. EKG:As per my interpretation. Indication chest pain. Normal sinus rhythm at [address] abnormality in inferior leads with anterior lateral ST depression and T wave inversions. These are new from EKG of November 18, 2021. QTc is 474. There is no ectopy. Cardiac/Tele Monitoring: Cardiac Monitoring: An Order was placed for continuous cardiac monitoring. The monitor shows a rate of 70 with a normal sinus rhythm. Consults: Discussed withDr Garber Cardiology: Agrees with plan for hospitalization, heparin, aspirin. He will touch base with interventional cardiology. Discussed with Dr. Mitchell of [facility] hospitalist. Aware of findings agrees with concern for inferior [place] and will bring in for further management Plan: Disposition:Hospitalization. Condition: Good History of Present Illness: 88-year-old female arrives for evaluation of chest pain. Patient with 3 to 4 days of substernal chest pain. Pain is persistent though does periodically go away. She has had pain all evening but states pain essentially resolved on arrival to the ER. Substernal in nature. No radiation. No nausea, vomiting, shortness of breath, syncope, back pain, other concerning signs or symptoms. She does report though that the last few days with exertion she gets a bit lightheaded and short of breath. Denies any previous CAD but did have a history of a V-fib requiring ablation. She does not have a ICD nor pacemaker. Patient denies any abdominal pain, nausea, vomiting, urinary/bowel symptoms, leg swelling, calf pain, other concerning signs or symptoms. No medications prior to arrival. Patient is on aspirin 81 mg daily. No other blood thinners. She does have a history of hypertension and GERD. She states this is not similar to her GERD. Patient denies any recent falls, trauma, injuries. She denies any black or bloody stools. She denies any vomiting recently or blood in spit. Patient does not have any headache. She has not had any recent neuro deficits. Past Medical History: Hypertension, dyslipidemia, and GERD and V-fib Home Medications: Diltiazem, hydrochlorothiazide, omeprazole, pravastatin Allergies: Keflex, IV dye Vitals:Blood Pressure: 156/80, Pulse 70, RR 20, T 36.3C, O2 99% on RA Physical Exam: GENERAL: Patient is mildly anxious appearing and in minimal distress. RESPIRATORY: No dyspnea. Clear to auscultation and equal bilaterally. CARDIOVASCULAR: Regular rate and rhythm.No murmur appreciated. GASTROINTESTINAL: Abdomen soft, non-tender, no peritonitis. EXTREMITIES: Normal motion all extremities, no cyanosis, no edema. NEUROLOGIC: Alert and oriented. No focal neurologic deficits appreciated SKIN: No rash, no jaundice, no diaphoresis. PSYCH: Appropriate GCS: 15 ED Course: Times/Reassessments: Repeat assessment patient without chest pain a bit anxious on being hospitalized. Agrees to heparin. Critical Care: I have personally spent 40 minutes of critical care time in the direct management of this patient. NSTEMI and its management including heparin drip.. This was a life/limb threatening event. This 40 minutes is in excess of all separately billable procedures. Sanjiv Kerr MD Past Med/Surg History Problem List (Updated 08/01/23 @ 09:24 by Diallo Mitchell MD) Acute [place] Non-ST elevation [place] (NSTEMI) (Acute) Dizziness Anemia Chronic kidney disease with active medical management without dialysis, stage 3 (moderate) 1st degree AV block Arrhythmia "SKIPS BEATS"-f/u dr garber, [facility] Palpitations Rash (Acute) Rash (Acute) Acute low back pain (Acute) Fall (Acute) HTN (hypertension) (Chronic) Acute low back pain (Acute) Acute low back pain (Acute) Ambulatory dysfunction (Acute) Ambulatory dysfunction (Acute) Back injury (Acute) Back pain (Acute) Fall (Acute) Encounter for pre-operative examination Incontinent of urine Arthritis Vaginal atrophy Frequent UTI "have them once in awhile" Medical History Acute hypokalemia Dyspnea Elevated troponin I level Lightheadedness Hx of fracture of foot History of COVID-19 Urinary urgency Nocturia False positive HIV serology History of endometriosis Degenerative disc disease Frequent UTI Autoimmune disorder Arrhythmia Hypertension Asthma Surgical History History of dilatation and curettage Hx of resection of small bowel Hx of total hysterectomy with removal of both tubes and ovaries History of cardiac radiofrequency ablation History of cataract surgery Difficult airway for intubation History of bilateral tubal ligation History of tooth extraction History of tonsillectomy History of adenoidectomy History of arthroscopy History of colonoscopy History of appendectomy History of cardiac cath Social History Smoking Status: Never smoker Second Hand Exposure: No; Do You Dip or Chew Tobacco: No; Hx Alcohol Use: No Hx Substance Use: No Preferred Language: Maldivian Communication Ability: Effective 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 Beliefs That Will Affect Care: None Current Living Situation: Spouse Feels Safe at Home: Yes Assistive Devices: Glasses and Walker Allergies Allergies Allergy/AdvReac Type Severity Reaction Status Date / Time cephalexin [From Keflex] Allergy Intermediate Rash Verified 08/01/23 10:39 Iodinated Contrast Media Allergy Intermediate Rash Verified 08/01/23 10:39 Home Meds Home Medications Medication Instructions Recorded Confirmed [facility] 1 tab PO QAM 12/20/17 08/01/23 ascorbic acid (vitamin C) 1,000 mg 1 g PO QAM 12/20/17 08/01/23 tablet (Vitamin C) aspirin 81 mg tablet,delayed 81 mg PO QPM 12/20/17 08/01/23 release glucosamine 1 dose PO BID 12/20/17 08/01/23 HCl-methylsulfonylmethane 1,500 mg-500 mg/30 mL liquid (Glucosamine Msm) hydrochlorothiazide 25 mg tablet 25 mg PO QAM 12/20/17 08/01/23 multivitamin 1 tab PO QAM 12/20/17 08/01/23 pravastatin 10 mg tablet 10 mg PO HS 12/20/17 08/01/23 loperamide 2 mg capsule 2 mg PO Q4H PRN Diarrhea 11/13/21 08/01/23 omeprazole 20 mg capsule,delayed 20 mg PO QAM 11/13/21 08/01/23 release diltiazem HCl 120 mg 120 mg PO DAILY 11/18/21 08/01/23 capsule,extended release 24 hr (Cardizem CD) clobetasol-emollient 0.05 % 1 applic topical DAILY PRN 08/01/23 08/01/23 topical cream dermatitis Previous Rx's Medication Instructions Recorded oxybutynin chloride 5 mg tablet 5 mg PO HS #90 tabs 12/11/21 Results & Data (ED) Vital Signs Vital Signs - 24 hr 08/01/23 07:19 08/01/23 07:36 08/01/23 07:36 Temperature 36.3 C L Temperature Source Oral Pulse Rate 64 Pulse Rate [Apical] 64 Pulse Rhythm [Apical] Pulse Strength [Apical] Respiratory Rate 20 12 Respiratory Effort / Characteristics Non-Labored Spontaneous Respiratory Depth Normal Respiratory Pattern Blood Pressure 149/70 H Blood Pressure [Right Arm] 140/73 Blood Pressure Mean 96 Blood Pressure Mean [Right Arm] 95 Blood Pressure Position [Right Arm] Pulse Oximetry 99 100 Oxygen Delivery Method Room Air Room Air Room Air Sepsis Recent Fever Within 48 Hours No Sepsis New/Unexplained Change in Mental Status N/A Sepsis Action Taken by Nursing No Action Required 08/01/23 07:44 08/01/23 08:25 08/01/23 10:30 Temperature Temperature Source Pulse Rate 65 Pulse Rate [Apical] 70 66 Pulse Rhythm [Apical] Pulse Strength [Apical] Respiratory Rate 20 20 Respiratory Effort / Characteristics Non-Labored Non-Labored Respiratory Depth Normal Normal Respiratory Pattern Blood Pressure Blood Pressure [Right Arm] 156/80 H 146/67 H Blood Pressure Mean Blood Pressure Mean [Right Arm] 105 93 Blood Pressure Position [Right Arm] Pulse Oximetry 99 100 Oxygen Delivery Method Room Air Room Air Sepsis Recent Fever Within 48 Hours Sepsis New/Unexplained Change in Mental Status Sepsis Action Taken by Nursing 08/01/23 11:15 08/01/23 11:22 08/01/23 11:28 Temperature Temperature Source Pulse Rate Pulse Rate [Apical] 65 77 Pulse Rhythm [Apical] Regular Pulse Strength [Apical] Respiratory Rate 20 Respiratory Effort / Characteristics Non-Labored Non-Labored Spontaneous Normal for Patient Respiratory Depth Normal Normal Respiratory Pattern Regular Blood Pressure Blood Pressure [Right Arm] 150/71 H 159/82 H Blood Pressure Mean Blood Pressure Mean [Right Arm] 97 107 Blood Pressure Position [Right Arm] Lying Pulse Oximetry 93 95 Oxygen Delivery Method Room Air Room Air Room Air Sepsis Recent Fever Within 48 Hours Sepsis New/Unexplained Change in Mental Status Sepsis Action Taken by Nursing 08/01/23 12:55 08/01/23 13:10 08/01/23 13:30 Temperature Temperature Source Pulse Rate Pulse Rate [Apical] 80 70 73 Pulse Rhythm [Apical] Regular Regular Regular Pulse Strength [Apical] Normal Normal Normal Respiratory Rate 16 16 16 Respiratory Effort / Characteristics Non-Labored Spontaneous Non-Labored Spontaneous Non-Labored Spontaneous Respiratory Depth Normal Normal Normal Respiratory Pattern Regular Regular Regular Blood Pressure Blood Pressure [Right Arm] 163/74 H 165/93 H 148/63 H Blood Pressure Mean Blood Pressure Mean [Right Arm] 103 117 91 Blood Pressure Position [Right Arm] Sitting Sitting Sitting Pulse Oximetry 96 96 96 Oxygen Delivery Method Room Air Room Air Room Air Sepsis Recent Fever Within 48 Hours Sepsis New/Unexplained Change in Mental Status Sepsis Action Taken by Nursing Laboratory Data 08/01/23 07:32 08/01/23 07:32 Lab Results 08/01/23 08/01/23 08/01/23 Range/Units 07:32 09:20 12:09 WBC 14.64 H (4.8-10.8) K/ul RBC 3.86 L (4.20-5.40) M/uL Hgb 11.9 L (12.0-16.0) g/dl Hct 34.7 L (37.0-47.0) % MCV 89.9 (80.0-100.0) fL MCH 30.8 (25.0-34.0) pg MCHC 34.3 (32.0-36.0) g/dL RDW Std Deviation 40.7 (36.4-46.3) fL RDW Coeff of Wyatt 12.3 (11.5-14.5) % Plt Count 355 (130-400) K/uL MPV 8.9 L (9.4-12.4) fL Immature Gran % (Auto) 0.5 % Neut % (Auto) 70.3 % Lymph % (Auto) 20.4 % Towner % (Auto) 7.7 % Eos % (Auto) 0.8 % Baso % (Auto) 0.3 % Neut # (Auto) 10.29 H (1.40-6.50) K/uL Lymph # (Auto) 2.98 (1.20-3.40) K/uL Towner # (Auto) 1.13 H (0.11-0.59) K/uL Eos # (Auto) 0.12 (0.00-0.50) K/uL Baso # (Auto) 0.05 (0.00-0.20) K/uL Immature Gran # (Auto) 0.07 (0.01-0.20) K/uL PT 10.0 (9.0-12.0) Seconds INR 0.9 (0.9-1.1) APTT 26 (21-31) Seconds PTT Ratio 1.0 Activ Coag Time Kaolin 195 H (94-140) SECONDS Sodium 136 (136-145) mmol/L Potassium 3.4 L (3.5-5.1) mmol/L Chloride 99 (98-107) mmol/L Carbon Dioxide 28 (21-32) mmol/L Anion Gap 9 (3-11) BUN 19 (6-23) mg/dl Creatinine 1.10 (0.6-1.2) mg/dl Est Cr Clr Drug Dosing 34.4 ml/min Est GFR ( Amer) 52.6 ml/min Est GFR (Non-Af Amer) 45.4 ml/min BUN/Creatinine Ratio 17.3 (10-20) Glucose 131 H (70-99(Fasting)) mg/dl Calcium 9.6 (8.6-10.3) mg/dl Magnesium 1.7 (1.7-2.4) mg/dl Total Bilirubin 0.9 (0.2-1.0) mg/dl Direct Bilirubin 0.2 (0-0.2) mg/dl AST 153 H (13-39) U/L ALT 28 (7-52) U/L Alkaline Phosphatase 59 (34-104) U/L Troponin I High Sens 16019.9 H* 88889.0 H* D (0-14) pg/ml Total Protein 7.7 (6.0-8.3) gm/dl Albumin 4.1 (3.4-5.0) gm/dl Lipase 22 (11-82) U/L 08/01/23 08/01/23 Range/Units 12:31 12:46 WBC (4.8-10.8) K/ul RBC (4.20-5.40) M/uL Hgb (12.0-16.0) g/dl Hct (37.0-47.0) % MCV (80.0-100.0) fL MCH (25.0-34.0) pg MCHC (32.0-36.0) g/dL RDW Std Deviation (36.4-46.3) fL RDW Coeff of Wyatt (11.5-14.5) % Plt Count (130-400) K/uL MPV (9.4-12.4) fL Immature Gran % (Auto) % Neut % (Auto) % Lymph % (Auto) % Towner % (Auto) % Eos % (Auto) % Baso % (Auto) % Neut # (Auto) (1.40-6.50) K/uL Lymph # (Auto) (1.20-3.40) K/uL Towner # (Auto) (0.11-0.59) K/uL Eos # (Auto) (0.00-0.50) K/uL Baso # (Auto) (0.00-0.20) K/uL Immature Gran # (Auto) (0.01-0.20) K/uL PT (9.0-12.0) Seconds INR (0.9-1.1) APTT (21-31) Seconds PTT Ratio Activ Coag Time Kaolin 269 H 275 H (94-140) SECONDS Sodium (136-145) mmol/L Potassium (3.5-5.1) mmol/L Chloride (98-107) mmol/L Carbon Dioxide (21-32) mmol/L Anion Gap (3-11) BUN (6-23) mg/dl Creatinine (0.6-1.2) mg/dl Est Cr Clr Drug Dosing ml/min Est GFR ( Amer) ml/min Est GFR (Non-Af Amer) ml/min BUN/Creatinine Ratio (10-20) Glucose (70-99(Fasting)) mg/dl Calcium (8.6-10.3) mg/dl Magnesium (1.7-2.4) mg/dl Total Bilirubin (0.2-1.0) mg/dl Direct Bilirubin (0-0.2) mg/dl AST (13-39) U/L ALT (7-52) U/L Alkaline Phosphatase (34-104) U/L Troponin I High Sens (0-14) pg/ml Total Protein (6.0-8.3) gm/dl Albumin (3.4-5.0) gm/dl Lipase (11-82) U/L Administered Medications Heparin Sodium/Dextrose (Heparin Sodium/Dextrose) 25,000 units in 500 mls @ 0 mls/hr IV .Q0M [facility]; Protocol Stop: 08/31/23 08:59 Last Titration: 08/01/23 11:20 Dose: 0 units/hr, 0 mls/hr Documented By: MARLENE Co-signed By: WENDY Admin: 08/01/23 08:43 Dose: 1,100 units/hr, 22 mls/hr Documented By: WENDY Co-signed By: MARLENE Discontinued Medications Aspirin (Aspirin Chew 324 Mg) 324 mg PO NOW STA Stop: 08/01/23 08:37 Last Admin: 08/01/23 08:42 Dose: 324 mg Documented By: WENDY Diphenhydramine HCl (Diphenhydramine 50 Mg/Ml Vial) Confirm Administered Dose 50 mg .ROUTE .STK-MED ONE Stop: 08/01/23 11:39 Last Admin: 08/01/23 12:52 Dose: 25 mg Documented By: ANDRES Famotidine (Famotidine 20mg/5ml Iv Push) Confirm Administered Dose 20 mg IV .STK-MED ONE Stop: 08/01/23 11:39 Last Admin: 08/01/23 12:53 Dose: 20 mg Documented By: ANDRES Fentanyl Citrate (Fentanyl Citrate Pf 100 Mcg/2 Ml Vial) Confirm Administered Dose 100 mcg .ROUTE .STK-MED ONE Stop: 08/01/23 11:05 Last Increment: 08/01/23 12:50 Dose: 50 mcg Documented By: ANDRES Heparin Sodium (Porcine) (Heparin Sod (Porcine) 1000 Unit/Ml) 1 units IV NOW ONE Stop: 08/01/23 08:52 Last Admin: 08/01/23 08:43 Dose: 5,000 units Documented By: WENDY Co-signed By: MARLENE Heparin Sodium (Porcine) (Heparin (Porcine) 1000 Unit/Ml 10 Ml (Senior Education Specialist Use Only)) Confirm Administered Dose 10,000 units .ROUTE .STK-MED ONE Stop: 08/01/23 11:04 Last Admin: 08/01/23 12:50 Dose: 5,000 units Documented By: ANDRES Heparin Sodium/Dextrose (Heparin Iv Adult Wt-Based Standard W/ Initial Bolus Protocol) 1 each IV NOW STA; Protocol Stop: 08/01/23 08:37 Last Admin: 08/01/23 08:44 Dose: 1 each Documented By: WENDY Heparin Sodium/Sodium Chloride (Heparin In Nss Infusion 1000 Unit/500 Ml (2 U/Ml) Bag) Confirm Administered Dose 3,000 units IV .STK-MED ONE Stop: 08/01/23 11:05 Last Admin: 08/01/23 12:50 Dose: 3,000 units Documented By: ARABELLA Iodixanol (Iodixanol (Visipaque) 320 Mg/Ml 100ml) Confirm Administered Dose 1 ml IV .STK-MED ONE Stop: 08/01/23 11:05 Last Admin: 08/01/23 12:51 Dose: Not Given Documented By: ANDRES Ioversol (Optiray 350) Confirm Administered Dose 1 ml .ROUTE .STK-MED ONE Stop: 08/01/23 12:15 Last Admin: 08/01/23 12:54 Dose: 150 ml Documented By: ARABELLA Methylprednisolone (Methylprednisolone 125 Mg/2 Ml Vial) Confirm Administered Dose 125 mg .ROUTE .STK-MED ONE Stop: 08/01/23 11:39 Last Admin: 08/01/23 12:53 Dose: 125 mg Documented By: ANDRES Midazolam HCl (Midazolam Hcl 1 Mg/Ml 2ml Vial) Confirm Administered Dose 2 mg .ROUTE .STK-MED ONE Stop: 08/01/23 11:04 Last Increment: 08/01/23 12:50 Dose: 1 mg Documented By: ANDRES Morphine Sulfate (Morphine Sulfate 2 Mg/Ml Carp) Confirm Administered Dose 2 mg .ROUTE .ST-MED ONE Stop: 08/01/23 08:59 Last Admin: 08/01/23 08:59 Dose: 1 mg Documented By: WENDY Morphine Sulfate (Morphine Sulfate 2 Mg/Ml Carp) 1 mg IV NOW STA Stop: 08/01/23 09:00 Last Admin: 08/01/23 09:06 Dose: Not Given Documented By: MARLENE Nicardipine HCl (Nicardipine Hcl Inj 2.5 Mg/Ml 10 Ml Amp) Confirm Administered Dose 25 mg .ROUTE .ST-MED ONE Stop: 08/01/23 11:05 Last Admin: 08/01/23 12:51 Dose: 25 mg Documented By: ARABELLA Nitroglycerin (Nitroglycerin 2% Ointment 30gm Tube) Confirm Administered Dose 18 inch EXT .STK-MED ONE Stop: 08/01/23 08:58 Last Admin: 08/01/23 08:59 Dose: 1 inch Documented By: WENDY Nitroglycerin (Nitroglycerin 2% Ointment 30gm Tube) 1 inch EXT NOW ONE Stop: 08/01/23 09:00 Last Admin: 08/01/23 09:06 Dose: Not Given Documented By: MARLENE Nitroglycerin/Dextrose (Nitroglycerin/D5w 100mcg/Ml 20ml Syr) Confirm Administered Dose 2,000 mcg .ROUTE .STK-MED ONE Stop: 08/01/23 11:05 Last Admin: 08/01/23 12:52 Dose: 2,000 mcg Documented By: ARABELLA Ticagrelor (Ticagrelor 90 Mg Tab) Confirm Administered Dose 180 mg .ROUTE .ST- MED ONE Stop: 08/01/23 12:40 Last Admin: 08/01/23 12:54 Dose: 180 mg Documented By: ANDRES Imaging Data Radiologist's Impression: Chest X-Ray 08/01/23 07:31 XR chest 1V portable CLINICAL HISTORY: Chest pain. COMPARISON STUDY: Chest CT October 01, 2007. Chest radiograph November 18, 2021. FINDINGS: Lung volumes are normal. Lungs are clear. There is no pneumothorax or pleural effusion. Cardiac size is normal. Mediastinal contours are normal. There is no evidence for pulmonary edema. IMPRESSION: No acute cardiopulmonary findings. ACT 112: Negative or not required by law. Electronically signed by: Ricky Mcqueen M.D. 08/01/2023 8:29 AM Discharge Plan Visit Data Chief Complaint: Cardiac Assessment ED Provider: Sanjiv Kerr Discharge Problem: Non-ST elevation [place] (NSTEMI) Patient Disposition: Admitted As Inpatient Discharge Instructions Interventions: ED Discharge Assessment Last Done: 08/01/23 11:22
[2023-08-01 07:51] LABS: Basophils # (auto) 0.05 K/uL (0.00-0.20); Basophils % (auto) 0.3 %; Eosinophils # (auto) 0.12 K/uL (0.00-0.50); Eosinophils % (auto) 0.8 %; Hematocrit (blood only) 34.7 % (37.0-47.0); Hemoglobin 11.9 g/dl (12.0-16.0); Immature Granulocytes # (auto) 0.07 K/uL (0.01-0.20); Immature Granulocytes % (auto) 0.5 %; Lymphocytes # (auto) 2.98 K/uL (1.20-3.40); Lymphocytes % (auto) 20.4 %; Mean Corpuscular Hemoglobin 30.8 pg (25.0-34.0); Mean Corpuscular Hgb Conc 34.3 g/dL (32.0-36.0); Mean Corpuscular Volume 89.9 fL (80.0-100.0); Mean Platelet Volume 8.9 fL (9.4-12.4); Monocytes # (auto) 1.13 K/uL (0.11-0.59); Monocytes % (auto) 7.7 %; Neutrophils # (auto) 10.29 K/uL (1.40-6.50); Neutrophils % (auto) 70.3 %; Platelet Count 355 K/uL (130-400); RDW Coefficient of Variation 12.3 % (11.5-14.5); RDW Standard Deviation 40.7 fL (36.4-46.3); Red Blood Count 3.86 M/uL (4.20-5.40); White Blood Count 14.64 K/ul (4.8-10.8)
[2023-08-01 08:13] LABS: Albumin Level 4.1 gm/dl (3.4-5.0); BUN Creatinine Ratio 17.3 (10-20); Bilirubin Direct 0.2 mg/dl (0-0.2); Bilirubin,Total 0.9 mg/dl (0.2-1.0); Calcium 9.6 mg/dl (8.6-10.3); Creatinine Clr Calc Pharmacy 34.4 ml/min; Est GFR (African American) 52.6 ml/min; Est GFR (Non-African American) 45.4 ml/min; Magnesium 1.7 mg/dl (1.7-2.4); Potassium 3.4 mmol/L (3.5-5.1); Total Protein 7.7 gm/dl (6.0-8.3)
[2023-08-01 08:20] LABS: Troponin I High Sensitivity 25813.9 pg/ml (0-14)
--- NOTE | 2023-08-01 08:32 | XRay Report ---
XR chest 1V portable CLINICAL HISTORY: Chest pain. COMPARISON STUDY: Chest CT October 01, 2007. Chest radiograph November 18, 2021. FINDINGS: Lung volumes are normal. Lungs are clear. There is no pneumothorax or pleural effusion. Car diac size is normal. Mediastinal contours are normal. There is no evidence for pulmonary edema. IMPRESSION: No acute cardiopulmonary findings. ACT 112: Negative or not required by law. Electronically signed by: Ricky Mcqueen M.D. 08/01/2023 8:29 AM
[2023-08-01] MEDS: ASPIRIN CHEW 324 MG PO STA (08:42)
[2023-08-01] MEDS: HEPARIN SOD (PORCINE) 1000 UNIT/ML IV ONE (08:43)
[2023-08-01] MEDS: HEPARIN SODIUM/DEXTROSE 25,000 UNITS/500 ML BAG IV SCH (08:43)
[2023-08-01] MEDS: Heparin IV Adult Wt-Based Standard w/ INITIAL Bolus Protocol IV STA (08:44)
[2023-08-01] MEDS: MoRPHine SULFATE 2 MG/ML CARP ONE (08:59)
[2023-08-01] MEDS: NITROGLYCERIN 2% OINTMENT 30GM TUBE EXT ONE ×2 (08:59→09:06)
[2023-08-01] MEDS: MoRPHine SULFATE 2 MG/ML CARP IV STA (09:06)
--- NOTE | 2023-08-01 09:26 | History & Physical Report ---
Date of Service August 01, 2023 Assessment & Plan (1) Acute WA: Plan: Inferiorposterior distribution. Troponin is 25,000. Cardiology has been notified. She is already on a heparin drip. She is having ongoing chest discomfort and topical nitrates have been ordered along with IV morphine. She probably will undergo cardiac catheterization later today, July 31 (2) Chronic kidney disease with active medical management without dialysis, stage 3 (moderate): Plan: Monitor intake and output. Serial lab (3) HTN (hypertension): Plan: Currently stable. Continue current medical management Plan To be determined History of Present Illness Chief Complaint: Chest discomfort Primary Care Provider: Johana Edouard DO 88-year-old white female with acute inferior posterior WA. She states she has had chest discomfort off and on for the past 3 to 4 days but at the time of my examination she was having steady chest discomfort. Heparin infusion was already started and cardiology has been notified. I notified them again that she was having ongoing chest discomfort and ordered intravenous morphine and topical nitrates. Dr. Gonzalez will be seeing the patient as soon as possible to determine if she can immediately go for heart catheterization procedure. Fortunately, her chest x-ray is unremarkable and her lung sounds are clear. Vital signs are stable. Cardiac rhythm is normal sinus at this time. She denies any radiation of her discomfort but states that she had intermittent shortness of breath with the chest discomfort while at home. She denies any diaphoresis Allergies Allergy/AdvReac Type Severity Reaction Status Date / Time cephalexin [From Keflex] Allergy Intermediate Rash Verified 01/24/23 15:00 Iodinated Contrast Media Allergy Intermediate Rash Verified 01/24/23 15:00 Home Medications Medication Instructions Recorded Confirmed Type [facility] 1 tab PO QAM 12/20/17 01/24/23 History ascorbic acid (vitamin C) 1,000 mg 1 g PO QAM 12/20/17 01/24/23 History tablet (Vitamin C) aspirin 81 mg tablet,delayed 81 mg PO QPM 12/20/17 01/24/23 History release glucosamine 1 dose PO BID 12/20/17 01/24/23 History HCl-methylsulfonylmethane 1,500 mg-500 mg/30 mL liquid (Glucosamine Msm) hydrochlorothiazide 25 mg tablet 25 mg PO QAM 12/20/17 01/24/23 History multivitamin 1 tab PO QAM 12/20/17 01/24/23 History pravastatin 10 mg tablet 10 mg PO HS 12/20/17 01/24/23 History loperamide 2 mg capsule 2 mg PO Q4H PRN Diarrhea 11/13/21 01/24/23 History omeprazole 20 mg capsule,delayed 20 mg PO QAM 11/13/21 01/24/23 History release diltiazem HCl 120 mg 120 mg PO DAILY 11/18/21 01/24/23 History capsule,extended release 24 hr (Cardizem CD) oxybutynin chloride 5 mg tablet 5 mg PO HS #90 tabs 12/11/21 01/24/23 Rx Past Med/Surg History Problem List (Updated 08/01/23 @ 09:24 by Diallo Mitchell MD) Acute WA Non-ST elevation WA (NSTEMI) (Acute) Dizziness Anemia Chronic kidney disease with active medical management without dialysis, stage 3 (moderate) 1st degree AV block Arrhythmia "SKIPS BEATS"-f/u dr garber, [facility] Palpitations Rash (Acute) Rash (Acute) Acute low back pain (Acute) Fall (Acute) HTN (hypertension) (Chronic) Acute low back pain (Acute) Acute low back pain (Acute) Ambulatory dysfunction (Acute) Ambulatory dysfunction (Acute) Back injury (Acute) Back pain (Acute) Fall (Acute) Encounter for pre-operative examination Incontinent of urine Arthritis Vaginal atrophy Frequent UTI "have them once in awhile" Medical History Acute hypokalemia Dyspnea Elevated troponin I level Lightheadedness Hx of fracture of foot History of COVID-19 Urinary urgency Nocturia False positive HIV serology History of endometriosis Degenerative disc disease Frequent UTI Autoimmune disorder Arrhythmia Hypertension Asthma Surgical History History of dilatation and curettage Hx of resection of small bowel Hx of total hysterectomy with removal of both tubes and ovaries History of cardiac radiofrequency ablation History of cataract surgery Difficult airway for intubation History of bilateral tubal ligation History of tooth extraction History of tonsillectomy History of adenoidectomy History of arthroscopy History of colonoscopy History of appendectomy History of cardiac cath Social History Smoking Status: Never smoker Second Hand Exposure: No; Do You Dip or Chew Tobacco: No; Hx Alcohol Use: No Hx Substance Use: No Preferred Language: Palauan Communication Ability: Effective Manager Underwriting Required: No Beliefs That Will Affect Care: None Current Living Situation: Spouse Feels Safe at Home: Yes Assistive Devices: Glasses and Walker Review of Systems 2 Review of Systems: Constitutional-no fever or chills ENT-no blurred vision, no double vision, no epistaxis, no sore throat Respiratory-no cough, no wheezing, no shortness of breath Cardiac-no palpitations, no syncope. Recent and current chest discomfort without radiation GI-no nausea, vomiting, diarrhea, melena, hematochezia -no urinary retention, no urinary incontinence, no dysuria, no hematuria Musculoskeletal-no joint pain, no muscle tenderness Skin-no bruising, no rashes, no pruritus Neuro-no isolated weakness, no paresthesia Psych-no depression, no anxiety Physical Exam 2 Physical Exam: General-alert and oriented x3, no fever, no chills HEENT-head atraumatic and normocephalic, pupils equal and reactive to light, extraocular muscles intact Neck-no lymphadenopathy or thyromegaly, trachea midline Chest-clear to auscultation. No rales, wheezing or rhonchi Cardiac-regular rate and rhythm, normal S1 and S2 Abdomen-normal bowel sounds, no hepatosplenomegaly Extremities-no cyanosis, clubbing, or edema Neuro-cranial nerves II through XII intact, motor and sensory function within normal limits, strength symmetrical, no focal deficits Psych-normal affect, normal mood Results & Data Results & Data Vital Signs (Past 12 Hours) Vital Signs Temp Pulse Pulse Resp BP BP Pulse Ox 08/01/23 08:25 70 20 156/80 H 99 08/01/23 07:44 65 08/01/23 07:36 64 12 140/73 100 08/01/23 07:36 08/01/23 07:19 36.3 C L 64 20 149/70 H 99 O2 Del Method 08/01/23 08:25 Room Air 08/01/23 07:44 08/01/23 07:36 Room Air 08/01/23 07:36 Room Air 08/01/23 07:19 Room Air Laboratory Results 08/01/23 07:32 08/01/23 07:32 Code Status & VTE Plan Code Status Full code PG Care Time/CCT Total # of Minutes Spent Total Time Spent with Patient: Total time spent is greater than 50% in coordination of care (as documented) at patient's floor/unit and/or counseling patient: Coding Level of Care Code 72225 INT INP/OBS CARE 3/75MIN Diagnoses Acute WA I21.9 Chronic kidney disease with active medical management without dialysis, stage 3 (moderate) N18.30 HTN (hypertension) I10
[2023-08-01 09:55] LABS: INR 0.9 (0.9-1.1); Partial Thromboplastin Time 26 Seconds (21-31)
--- NOTE | 2023-08-01 11:32 | Pre Anesthesia Assessment ---
Date of Service August 01, 2023 Pre Sedation Assessment Vital Signs Temp Pulse Pulse Resp BP BP Pulse Ox 08/01/23 11:22 08/01/23 11:15 65 20 150/71 H 93 08/01/23 10:30 66 20 146/67 H 100 08/01/23 08:25 70 20 156/80 H 99 08/01/23 07:44 65 08/01/23 07:36 64 12 140/73 100 08/01/23 07:36 08/01/23 07:19 36.3 C L 64 20 149/70 H 99 O2 Del Method 08/01/23 11:22 Room Air 08/01/23 11:15 Room Air 08/01/23 10:30 Room Air 08/01/23 08:25 Room Air 08/01/23 07:44 08/01/23 07:36 Room Air 08/01/23 07:36 Room Air 08/01/23 07:19 Room Air Cardiovascular Additional Comments: Regular rate and rhythm. Grade 1-2/6 systolic murmur. S4 gallop. No edema. 2+ radial pulse. Respiratory normal respiratory effort, lungs clear to auscultation Pre-Sedation Airway Assessment Smoking Status: Never smoker Mallampati 2 ASA 4 Notes The planned sedation has been discussed with the patient. Informed Consent was obtained. I have identified the patient, determined the appropriateness of sedation and have assessed the patient immediately prior to the procedure. All medicine(s) and interventions are by my order. [facility] [place] Procedure Codes (Charges) Indication for Procedure Indication for procedure: Non-ST elevation AZ
--- NOTE | 2023-08-01 11:35 | Electrocardiogram Report ---
Test Reason : Blood Pressure : / mmHG Vent. Rate : 063 BPM Atrial Rate : 067 BPM P-R Int : 188 ms QRS Dur : 094 ms QT Int : 464 ms P-R-T Axes : 073 057 064 degrees QTc Int : 474 ms Normal sinus rhythm with sinus arrhythmia Nonspecific ST and T wave abnormality concerning for inferior injury Prolonged QT Abnormal ECG When compared with ECG of 18-NOV-2021 09:05, [place] interval has decreased T wave inversion now evident in Inferior leads T wave inversion now evident in Lateral leads Confirmed by Yanick Carrizales ([id number]) on 08/01/2023 11:35:15 AM Referred By: REFERRED SELF Confirmed By:Francis Carrizales
[2023-08-01] MEDS: MIDAZOLAM HCL 1 MG/ML 2ML VIAL ONE ×2 (12:50→21:08)
[2023-08-01] MEDS: fentaNYL citrate PF 100 MCG/2 ML VIAL ONE ×2 (12:50→21:09)
[2023-08-01] MEDS: HEPARIN (PORCINE) 1000 UNIT/ML 10 ML (CATH LAB USE ONLY) ONE ×2 (12:50→21:09)
[2023-08-01] MEDS: niCARdipine HCL INJ 2.5 MG/ML 10 ML AMP ONE ×2 (12:51→21:04)
[2023-08-01] MEDS: IODIXANOL (VISIPAQUE) 320 MG/ML 100ML IV ONE (12:51)
[2023-08-01] MEDS: NITROGLYCERIN/D5W 100MCG/ML 20ML SYR ONE (12:52)
[2023-08-01] MEDS: diphenhydrAMINE 50 MG/ML VIAL ONE ×2 (12:52→20:50)
[2023-08-01] MEDS: FAMOTIDINE 20MG/5ML IV PUSH IV ONE ×2 (12:53→20:51)
[2023-08-01] MEDS: methylPREDNISolone 125 MG/2 ML VIAL ONE ×2 (12:53→20:51)
[2023-08-01] MEDS: OPTIRAY 350 ONE ×2 (12:54→21:09)
[2023-08-01] MEDS: TICAGRELOR 90 MG TAB ONE (12:54)
--- NOTE | 2023-08-01 12:56 | Post Anesthesia Assessment ---
Date of Service August 01, 2023 Post Sedation Assessment Vital Signs Temp Pulse Pulse Resp BP BP Pulse Ox 08/01/23 11:28 77 159/82 H 95 08/01/23 11:22 08/01/23 11:15 65 20 150/71 H 93 08/01/23 10:30 66 20 146/67 H 100 08/01/23 08:25 70 20 156/80 H 99 08/01/23 07:44 65 08/01/23 07:36 64 12 140/73 100 08/01/23 07:36 08/01/23 07:19 36.3 C L 64 20 149/70 H 99 O2 Del Method 08/01/23 11:28 Room Air 08/01/23 11:22 Room Air 08/01/23 11:15 Room Air 08/01/23 10:30 Room Air 08/01/23 08:25 Room Air 08/01/23 07:44 08/01/23 07:36 Room Air 08/01/23 07:36 Room Air 08/01/23 07:19 Room Air Recovery Score Activity: Moves 4 extremities Respiration: Deep Breath/Cough Circulation: +/-20% PreAnes Value Consciousness: Fully Awake Oxygen Saturation: > 92% On Room Air Discharge Sedation Level of Care: Fast Track Phase II Post Sedation Plan On clinical assessment, the patient appears to have tolerated the sedation without complications. Patient is recovering as anticipated. Patient will continue to be monitored by nursing and may be discharged when sedation discharge criteria are met per below protocol. Upon Completions of procedure up to 15 minutes continue every 5 minute vital signs and the P.A.R. score; then discharge to a Phase I or Fast Track to Phase II per the following guidelines: * Discharge Patient to appropriate Phase II area if PAR is 8 or greater or return to pre- procedure baseline. The post - procedure orders will be as directed. * If PAR score is less than 8 or not return to pre-procedure baseline then patient will follow Phase I monitoring till PAR is reached for Phase II. The Phase I may be done in procedure room or may call to secure a Phase I area. * If naloxone or flumazenil are used for reversal, hold in Phase I for continued monitoring from when last reversal dose was given for a minimum of 60 minutes or longer pending the nurse and/or physician discretion of patient condition before discharge to Phase II. Please call the Sedation Physician to re-evaluate and complete post-note for discharge to Phase II area. Do NOT discharge from procedure sedation or Phase 1 until post- sedation evaluation note is complete by procedure /sedation MD Sedation Discharge Instructions to be given to the patient at discharge to home. [facility] [place] Procedure Codes (Charges) Indication for Procedure Indication for procedure: Non-ST elevation [place] Sedation/Anesthesia Procedure 1: Sedation/Anesthesia: 52987 Mod Sedation by the same physician;Init15 Min Child Age 5 & Up (Initial 15 minutes, start 1156) Total Sedation Time (minutes): 52 Procedure 2: Sedation/Anesthesia: 97498 Mod Sedation by the same physician; Ea [id number] Minutes (Additional 37 minutes, end time 1248) Total Sedation Time (minutes): 52
--- NOTE | 2023-08-01 16:07 | Cardiac Catheterization ---
[facility] Data: Sports Team Manager Cardiac Status Clinical evaluation leading to the procedure CAD Presenation: Non STEMI Anginal Classification: CCS IV Heart Failure: No Cardiogenic Shock within 24 Hours: No Cardiac Arrest within 24 Hours: No Coronary Anatomy Dominant: Co-Dominant Left Main (% Stenosis): Normal LAD (% Stenosis): Proximal (40 to 50%) and Mid (30 to 40%) D1 (% Stenosis): Normal D2 (% Stenosis): Normal Circumflex (% Stenosis): Mid (Calcified 20 to 30%) OM1 (% Stenosis): Proximal (Up to 50%) OM2 (% Stenosis): Proximal (95 to 99%) L PDA (% Stenosis): Normal RCA (% Stenosis): Normal Diagnostic Physicians Name: Guzman Gonzalez MD, PhD Closure Device Percutaneous Entry Location: Femoral Closure Device: Angio-Seal Recommendations: Medical Therapy and/or Counseling and PCI without planned CABG PCI Indication: PCI for high risk Non-DIANDRA Lesion Segment Name: Ostial to proximal OM 2 Culprit Artery: Yes Stenosis Prior to Rx (%): 95 to 99% Chronic Total Occlusion: No Pre-Procedure MIKKI Flow: 1 Previously Treated Lesion: No Lesion Complexity: Non-High/Non-C Lesion Length (mm): 12 mm Thrombus Present: No Bifurcation Lesion: Yes Guidewire Across Lesion: Yes Intraprocedure Events Significant Disection: No Perforation: No Cardiac Cath Procedure Full Procedure Date August 01, 2023 Pre-Procedure Diagnosis Pre-Procedure Diagnosis: Non STEMI AUC Score AUC Score: 07 Post-Procedure Diagnosis Post-Procedure Diagnosis: Severe CAD and Successful PCI Procedure(s) Performed Procedure(s) Performed: Coronary Angiography, Drug Eluting Stent and Ultrasound Guided Vascular Access Pipe Foreman Guzman Gonzalez MD, PhD Estimated Blood Loss Estimated Blood Loss: 10 cc Medication(s) Medication(s): Diphenhydramine, Fentanyl, Heparin, Lidocaine 1%, Nicardipine, Nitroglycerin and Versed Summary of Findings Brief description: Patient was brought to the cardiac catheterization suite where she was shaved and prepped in a sterile fashion. Sedated using IV Versed and fentanyl. In addition, she was premedicated for IVP contrast allergy using Solu-Medrol 125 mg, Pepcid 20 mg, and Benadryl 25 mg. Soft tissues of the right wrist were anesthetized using 2 mL of 1% Xylocaine. We attempted to access the right radial artery but were unsuccessful despite the use of ultrasound. Therefore, we abandon further radial artery approach and turned our attention to femoral access. Soft tissues of the right groin were anesthetized using 10 mL of 1% Xylocaine. Using ultrasound for guidance (image saved), right femoral artery was accessed and a 6 Ug[place]an femoral artery sheath was placed. All catheters were advanced and exchanged over a 0.035 J-tip wire. Left coronary angiography was performed in orthogonal views with a 5 Ugandan JL 4 diagnostic catheter. Right coronary angiography was performed in orthogonal views with a 5 Ug[place] JR4 diagnostic catheter. Decision was made to proceed with PCI. Diagnostic catheters were removed. A 6 [place] EBU 3.0 guide catheter was used to engage the left main coronary. ACT was checked and additional heparin provided intermittently through the case to maintain therapeutic anticoagulation. A BMW reversal guidewire was advanced and positioned distally in the obtuse marginal branch of the circumflex. Lesion was predilated using a 1.5 x 8 mm balloon initially inflated at 8 norberto then followed by 14 norberto. Additional predilatation was performed using a 2.5 x 12 mm trek balloon inflated across the lesion at 12 norberto. Balloon was removed. PCI undertaken using a guide liner to help deliver the stent and a 2.5 x 18 mm Justice drug-eluting stent. This was positioned across the lesion and then deployed at 13 norberto. Stent delivery system was then removed. The stent was then postdilated with an NC neotwo 0.5 x 8 mm balloon. 15 norberto distally, 16 norberto mid stent, and 17 norberto proximal stent. The balloon was then removed. Assistant Professor Of Music angiography was performed. Guidewire was removed along with the guide liner and final angiographic evaluation was performed. Guide catheter was then removed. Limited right femoral artery angiography was performed to evaluate for closure. Findings were favorable, therefore, the 6 Ug[place]an femoral artery sheath was exchanged for a 6 [place] Angio-Seal closure device. This was deployed in the recommended fashion. We obtained immediate hemostasis and the patient remained hemodynamically stable. She had no symptoms and was returned to the recovery area. She was provided 180 mg of Brilinta p.o. in the Sports Team Manager suite. This ended the case. Coronary angiography findings: [id number]-ddyonba with mild calcification. Bifurcates into LAD and circumflex. Mild luminal irregularities. DEY-klgsq-audlxaz vessel. It is transapical. First branches are the septal and small first diagonal. It then provides a medium to large caliber branching second diagonal. Proximal LAD with 40 to 50% calcified stenosis. Mid vessel with diffuse 30 to 40% stenosis. Distally the vessels are tortuous with mild luminal irregularities. STg-zxgbh-rupxovh. Proximal segment with out disease. Provides a high arising small to medium caliber OM1. This has proximal up to 50% stenosis. Mid circumflex has a hazy calcified 20 to 30% stenosis. It provides a large caliber branching OM2. There is a focal 95 to 99% stenosis at the ostium through the proximal segment before the early branch. MIKKI I flow after the lesion. It branches into 2 large vessels with the inferior branch having itself multiple branches. The distal AV groove circumflex becomes medium and tapers as it terminates in a small caliber tortuous PDA. WHQ-ohgub-wnxoikb. No significant disease. PCI of OM 2-0% residual stenosis post PCI MIKKI-3 flow post PCI No evidence of dissection or perforation post PCI Summary: 1. Severe stenosis of the large multi branching OM 2 is culprit for non-ST elevation IN. 2. Patient with calcified proximal coronaries, tortuous distal coronaries, and mild nonocclusive disease in the remainder of the arteries as described 3. Successful PCI of the OM 2 with implantation of a drug-eluting stent. This extends from the AV groove circumflex across the ostium and past the first branch of the OM 2. 4. Dual antiplatelet therapy for 1 to 2 years. 5. Guideline directed medical therapy for secondary prevention of coronary disease to include; low-dose aspirin, high intensity statin therapy, beta- mirella, plus or minus ANATOLY inhibitor/ARB. Exact regimen to be determined by primary air export coordinator. Hemodynamics Rest Ao:: 170/75 mmHg Final Ao: 179/66 mmHg LV: Not performed Recommendations Recommendations: Medical Therapy and/or Counseling and PCI without planned CABG Radiation Exposure (mGy) 655 mGy, fluoroscopy time 9.5 minutes Contrast (mls) 150 cc Anesthesia 1 mg Versed, 50 mcg fentanyl Procedural Complication(s) None Disposition Sports Team Manager Holding/Recovery I attest to the content of the Intraoperative Record and any orders documented therein. Any exceptions are noted below. [employer] Card Cath Procedure Codes Cardiac Catheterization Procedure 1: Cardiovascular Cath Procedures: 54293 Coronaries Moderate Sedation Procedure 1: Sedation/Anesthesia: 14577 Mod Sedation by the same physician;Init15 Min Child Age 5 & Up (Initial 15 minutes, start 1156) Procedure 2: Sedation/Anesthesia: 19919 Mod Sedation by the same physician; Ea [id number] Minutes (Additional 37 minutes, stop 1248) Stenting Procedure 1: Cardiovascular Stent Procedures: 99772 Perc transluminal revascularization of acute sub/total occl, aMI (LCx-OM 2) PG Care Time/CCT Total # of Minutes Spent Total Time Spent with Patient: Total time spent is greater than 50% in coordination of care (as documented) at patient's floor/unit and/or counseling patient:
[2023-08-01 16:23] LABS: ANTI-Xa, UFH(UnfractionatedHep > 1.50 IU/ml (0.3-0.7)
--- NOTE | 2023-08-01 17:36 | Electrocardiogram Report ---
Test Reason : Blood Pressure : / mmHG Vent. Rate : 074 BPM Atrial Rate : 074 BPM P-R Int : 210 ms QRS Dur : 094 ms QT Int : 454 ms P-R-T Axes : 082 052 077 degrees QTc Int : 503 ms Sinus rhythm with 1st degree A-V block Nonspecific ST and T wave abnormality concerning for inferior injury Prolonged QT Abnormal ECG When compared with ECG of 01-AUG-2023 07:33, No significant change was found Confirmed by Yanick Carrizales ([id number]) on 08/01/2023 5:35:51 PM Referred By: REFERRED SELF Confirmed By:Francis Carrizales
[2023-08-01] MEDS: NITROGLYCERIN SL 0.4 MG/TAB TAB SL PRN (19:25)
[2023-08-01] MEDS ORDERED: SODIUM CHLORIDE 0.9% 1,000 ML IV ONE (19:46)
[2023-08-01] MEDS ORDERED: POTASSIUM CHLORIDE / WTR 20 MEQ/100 ML PLCT IV ONE (19:49)
[2023-08-01] MEDS: POTASSIUM CHLORIDE / WTR 10 MEQ/100 ML PLCT IV SCH (19:59)
[2023-08-01] MEDS: MAGNESIUM SULFATE / D5W 1 GM/100 ML BAG IV ONE ×2 (19:59→22:12)
[2023-08-01 20:31] LABS: BUN Creatinine Ratio 15.9 (10-20); Calcium 9.6 mg/dl (8.6-10.3); Creatinine Clr Calc Pharmacy 35.3 ml/min; Est GFR (African American) 54.4 ml/min; Potassium 3.5 mmol/L (3.5-5.1)
--- NOTE | 2023-08-01 20:48 | Communication Note ---
Date of Service: August 01, 2023 Patient was taken to the labor specialist 07/31 PCI with YAA x1 placed for nonSTEMI. Loaded with Brilinta and ASA. Was on heparin prior to procedure - stopped as sup ratherapeutic. No baseline ECHO available. Is ordered for 08/01. No post- procedure labs or IVF were ordered. Alerted by nursing that patient experiencing new chest pain - requesting PRN nitro. Ordered while en route to room. Resident to room 461-2. Patient with severe substernal chest pain - no radiation, no SOB, no diaphoresis. Patient received SL nitro x 2 with significant improvement in chest pain. Per my read evolving ST elevation in leads II, III, avF. Contacted motion study technician interventionalist Dr. Gonzalez x 3 phone calls. Third call answered. Did send EKGs to and discuss case with Dr. Gonzalez. He agreed to come in and see the patient. Patient then with acute change in status - began looking at the ceiling with her arms outstretched then began having abnormal movements of the bilateral upper extremities and trunk. Patient transiently unresponsive with slow pulse. Patient did respond to painful stimuli and was able to speak. Heart rate then in the 80s. Started on O2 2L NC. A heart alert was called as patient with high likelihood of needing return trip to the labor specialist. Dr. Harvey came to bedside. Started IVF @ 100 mL/hr x2 L. Ordered trop, CXR, BMP, Mag, Phos, CBC. Trop now [address] Gonzalez came to bedside and is taking patient to the labor specialist. Will go to ICU after - orders in. Resident Activity Tracking Resident Involvement: Resident Care Provided Care Provided: Adult Hospital Medicine
[2023-08-01 21:07] LABS: Troponin I High Sensitivity 36237.9 pg/ml (0-14)
--- NOTE | 2023-08-01 21:49 | Pre Anesthesia Assessment ---
Date of Service August 01, 2023 Pre Sedation Assessment Vital Signs Temp Pulse Pulse Resp BP BP BP 08/01/23 19:45 82 20 120/64 08/01/23 19:45 36.5 C 74 19 157/82 H 08/01/23 19:30 78 18 126/72 08/01/23 19:15 80 18 121/71 08/01/23 19:00 90 16 153/85 H 08/01/23 17:11 81 08/01/23 16:41 74 19 153/79 H 08/01/23 15:48 08/01/23 15:41 82 18 160/80 H 08/01/23 14:41 36.5 C 74 18 158/83 H 08/01/23 13:45 80 16 152/74 H 08/01/23 13:30 73 16 148/63 H 08/01/23 13:10 70 16 165/93 H 08/01/23 12:55 80 16 163/74 H 08/01/23 11:28 77 159/82 H 08/01/23 11:22 08/01/23 11:15 65 20 150/71 H 08/01/23 10:30 66 20 146/67 H 08/01/23 08:25 70 20 156/80 H 08/01/23 07:44 65 08/01/23 07:36 64 12 140/73 08/01/23 07:36 08/01/23 07:19 36.3 C L 64 20 149/70 H Pulse Ox O2 Del Method O2 Flow Rate 08/01/23 19:45 98 Nasal Cannula 2 08/01/23 19:45 97 Room Air 08/01/23 19:30 96 Room Air 08/01/23 19:15 97 Room Air 08/01/23 19:00 96 Room Air 08/01/23 17:11 08/01/23 16:41 98 Room Air 08/01/23 15:48 Room Air 08/01/23 15:41 99 Room Air 08/01/23 14:41 98 Room Air 08/01/23 13:45 97 Room Air 08/01/23 13:30 96 Room Air 08/01/23 13:10 96 Room Air 08/01/23 12:55 96 Room Air 08/01/23 11:28 95 Room Air 08/01/23 11:22 Room Air 08/01/23 11:15 93 Room Air 08/01/23 10:30 100 Room Air 08/01/23 08:25 99 Room Air 08/01/23 07:44 08/01/23 07:36 100 Room Air 08/01/23 07:36 Room Air 08/01/23 07:19 99 Room Air Cardiovascular Additional Comments: rrr, 1-2/6 sm Respiratory normal respiratory effort, lungs clear to auscultation Pre-Sedation Airway Assessment Smoking Status: Never smoker Hx Sleep Apnea: No Short, Thick Neck: No Thyromental Distance: > or= 3.5 Finger Breadths Oral Cavity: + WNL Mallampati Class: II ASA: ASA4 NPO Status Date of Last Intake of Fluids: 08/01/23 Time of Last Intake of Fluids: 09:30 Date of Last Intake of Solid Food: 08/01/23 Time of Last Intake of Solid Foods: 18:00 Notes The planned sedation has been discussed with the patient. Informed Consent was obtained. I have identified the patient, determined the appropriateness of sedation and have assessed the patient immediately prior to the procedure. All medicine(s) and interventions are by my order.
--- NOTE | 2023-08-01 21:52 | Post Anesthesia Assessment ---
Date of Service August 01, 2023 Post Sedation Assessment Vital Signs Temp Pulse Pulse Resp BP BP BP 08/01/23 19:45 82 20 120/64 08/01/23 19:45 36.5 C 74 19 157/82 H 08/01/23 19:30 78 18 126/72 08/01/23 19:15 80 18 121/71 08/01/23 19:00 90 16 153/85 H 08/01/23 17:11 81 08/01/23 16:41 74 19 153/79 H 08/01/23 15:48 08/01/23 15:41 82 18 160/80 H 08/01/23 14:41 36.5 C 74 18 158/83 H 08/01/23 13:45 80 16 152/74 H 08/01/23 13:30 73 16 148/63 H 08/01/23 13:10 70 16 165/93 H 08/01/23 12:55 80 16 163/74 H 08/01/23 11:28 77 159/82 H 08/01/23 11:22 08/01/23 11:15 65 20 150/71 H 08/01/23 10:30 66 20 146/67 H 08/01/23 08:25 70 20 156/80 H 08/01/23 07:44 65 08/01/23 07:36 64 12 140/73 08/01/23 07:36 08/01/23 07:19 36.3 C L 64 20 149/70 H Pulse Ox O2 Del Method O2 Flow Rate 08/01/23 19:45 98 Nasal Cannula 2 08/01/23 19:45 97 Room Air 08/01/23 19:30 96 Room Air 08/01/23 19:15 97 Room Air 08/01/23 19:00 96 Room Air 08/01/23 17:11 08/01/23 16:41 98 Room Air 08/01/23 15:48 Room Air 08/01/23 15:41 99 Room Air 08/01/23 14:41 98 Room Air 08/01/23 13:45 97 Room Air 08/01/23 13:30 96 Room Air 08/01/23 13:10 96 Room Air 08/01/23 12:55 96 Room Air 08/01/23 11:28 95 Room Air 08/01/23 11:22 Room Air 08/01/23 11:15 93 Room Air 08/01/23 10:30 100 Room Air 08/01/23 08:25 99 Room Air 08/01/23 07:44 08/01/23 07:36 100 Room Air 08/01/23 07:36 Room Air 08/01/23 07:19 99 Room Air Recovery Score Activity: Moves 4 extremities Respiration: Deep Breath/Cough Circulation: +/-20% PreAnes Value Consciousness: Fully Awake Oxygen Saturation: > 92% On Room Air Post Anesthesia Score: 10 Discharge Sedation Level of Care: Fast Track Phase II Post Sedation Plan On clinical assessment, the patient appears to have tolerated the sedation without complications. Patient is recovering as anticipated. Patient will continue to be monitored by nursing and may be discharged when sedation discharge criteria are met per below protocol. Upon Completions of procedure up to 15 minutes continue every 5 minute vital signs and the P.A.R. score; then discharge to a Phase I or Fast Track to Phase II per the following guidelines: * Discharge Patient to appropriate Phase II area if PAR is 8 or greater or return to pre- procedure baseline. The post - procedure orders will be as directed. * If PAR score is less than 8 or not return to pre-procedure baseline then patient will follow Phase I monitoring till PAR is reached for Phase II. The Phase I may be done in procedure room or may call to secure a Phase I area. * If naloxone or flumazenil are used for reversal, hold in Phase I for continued monitoring from when last reversal dose was given for a minimum of 60 minutes or longer pending the nurse and/or physician discretion of patient condition before discharge to Phase II. Please call the Sedation Physician to re-evaluate and complete post-note for discharge to Phase II area. Do NOT discharge from procedure sedation or Phase 1 until post- sedation evaluation note is complete by procedure /sedation MD Sedation Discharge Instructions to be given to the patient at discharge to home. [facility] Procedure Codes (Charges) Indication for Procedure Indication for procedure: Return chest pain Abnormal EKG Sedation/Anesthesia Procedure 1: Sedation/Anesthesia: 16584 Mod Sedation by the same physician;Init15 Min Child Age 5 & Up (Initial 15 minutes, start 2049) Total Sedation Time (minutes): 40 Procedure 2: Sedation/Anesthesia: 44434 Mod Sedation by the same physician; Ea [id number] Minutes (Additional 25 min, End 2129) Total Sedation Time (minutes): 40
--- NOTE | 2023-08-01 22:07 | XRay Report ---
XR chest 1V portable CLINICAL HISTORY: heart alert TECHNIQUE: Single frontal radiograph of the chest was obtained. Comparison: Comparison is made to chest radiograph 08/01/2023 FINDINGS: No lines and tubes are seen. Calcified aortic knob is seen. The lungs are clear. No evidence of pleur al effusion or pneumothorax. IMPRESSION: No acute chest disease. ACT 112: Negative or not required by law. Electronically signed by: Stevan Whyte M.D. 08/01/2023 10:06 PM
--- NOTE | 2023-08-01 22:13 | Cardiac Catheterization ---
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 Cardiac Status Clinical evaluation leading to the procedure CAD Presenation: Unstable angina Anginal Classification: CCS IV Heart Failure: No Cardiogenic Shock within 24 Hours: No Cardiac Arrest within 24 Hours: No Imaging Studies Past 6 Months: Yes Coronary Anatomy Left Main (% Stenosis): Normal LAD (% Stenosis): Proximal (40 to 50% calcified) and Mid (30 to 40%) D1 (% Stenosis): Normal Circumflex (% Stenosis): Mid (He is a calcified 20 to 30%) OM1 (% Stenosis): Proximal (50%) OM2 (% Stenosis): Ostial (Stent patent) RCA (% Stenosis): Proximal (Luminal irregularity) Diagnostic Physicians Name: Guzman Gonzalez MD, PhD Closure Device Percutaneous Entry Location: Femoral Closure Device: None-Manual Hold Recommendations: Medical Therapy and/or Counseling Cardiac Cath Procedure Full Procedure Date August 01, 2023 Pre-Procedure Diagnosis Pre-Procedure Diagnosis: Non STEMI AUC Score AUC Score: 07 Post-Procedure Diagnosis Post-Procedure Diagnosis: Mild CAD Procedure(s) Performed Procedure(s) Performed: Coronary Angiography and Ultrasound Guided Vascular Access Social Contact Worker Guzman Gonzalez MD, PhD Estimated Blood Loss Estimated Blood Loss: 10 cc Medication(s) Medication(s): Diphenhydramine, Fentanyl, Heparin, Lidocaine 1%, Nicardipine, Nitroglycerin and Versed Summary of Findings Brief description: Patient returned back to the cardiac catheterization suite for chest pain and questionable EKG changes post PCI. She was shaved and prepped in a sterile fashion. Sedated using IV fentanyl. She was pretreated for IVP contrast allergy using Benadryl 25 mg, Solu-Medrol 125 mg, and Pepcid 20 mg IV. Soft tissues of the left groin were anesthetized using 10 mL of 1% Xylocaine. Using ultrasound for guidance, the left femoral artery was accessed and a 6 Fijian femoral artery sheath was placed. All catheters were advanced and exchanged over 8.035 J-tip wire. Left coronary angiography in orthogonal views with a 5 Fijian JL 4 diagnostic catheter. Right coronary angiography in orthogonal views with a 5 Fijian JR4 diagnostic catheter. Diagnostic catheters were removed. Limited left femoral artery angiography was performed to evaluate for closure. Findings were not favorable, therefore, the ACT was checked and the sheath was removed. Hemostasis was obtained using manual compression. Patient remained hemodynamically stable and asymptomatic. She was returned to the recovery area. This ended the case. Coronary angiography findings: [id number]-wdhyn-[id number] bifurcating into LAD and circumflex. Mildly calcified with mi ld luminal irregularities. IMI-pmzpw-[id number] and transapical. Proximal 40 to 50% calcified stenosis. Gives the septal and first diagonal which have no significant disease. Mid LAD has 30 to 40% stenosis in the distal vessel is tortuous with luminal irregularities. PZx-hpigo-[id number]. Travels in the AV groove where it gives a small to medium caliber high rising OM1. This has proximal 50% stenosis. The mid AV groove circumflex has a hazy calcified 20 to 30% stenosis. This lesion has been present since 2014. The large multi branching OM 2 has a stent which extends into the mid circumflex proximally and past the first major branch distally. This is widely patent with MIKKI-3 flow distally. The distal AV groove vessel becomes medium in caliber traveling distally where it terminates as a small tortuous PDA. This vessel is unchanged from PCI earlier today. RCA-large vessel. There is some proximal luminal irregularities and there is no significant disease. There is no change from prior catheterization. Summary: 1. Widely patent recent stent. No angiographic change in the remainder of the coronary arteries. 2. Continue guideline directed medical therapy. Patient will remain on aspirin and Brilinta. We will discontinue heparin at this time. She will continue beta-mirella and we will add amlodipine for potential coronary vasospasm and to control blood pressure. She will also be on statin. The sublingual nitro has been discontinued because of hypotension with loss of consciousness occurring previously when she received this medication. If needed, we could utilize a long-acting nitroglycerin in the future. 3. We will order an echocardiogram as it does not appear to have been ordered yet. Hemodynamics Rest Ao:: 141/69 mmHg Final Ao: 156/71 mmHg LV: Not performed Recommendations Recommendations: Medical Therapy and/or Counseling Radiation Exposure (mGy) 260 mGy, fluoroscopy time 2.4 minutes Contrast (mls) 40 mL Anesthesia 25 mcg fentanyl, start 2049, stop 2129 Procedural Complication(s) None Disposition Lawn And Garden Technician Holding/Recovery I attest to the content of the Intraoperative Record and any orders documented therein. Any exceptions are noted below. Nacuii Card Cath Procedure Codes Cardiac Catheterization Procedure 1: Cardiovascular Cath Procedures: 68363 Coronaries Moderate Sedation Procedure 1: Sedation/Anesthesia: 18567 Mod Sedation by the same physician;Init15 Min Child Age 5 & Up (Initial 15 minutes, start 2049) Procedure 2: Sedation/Anesthesia: 53768 Mod Sedation by the same physician; Ea [id number] Minutes (Additional 25 minutes, stop 2129) PG Care Time/CCT Total # of Minutes Spent Total Time Spent with Patient: Total time spent is greater than 50% in coordination of care (as documented) at patient's floor/unit and/or counseling patient:
[2023-08-01] MEDS: SODIUM CHLORIDE 0.9% 1,000 ML IV SCH (22:21)
--- NOTE | 2023-08-01 22:28 | Cardiology Consultation ---
Date of Consultation August 01, 2023 Assessment & Plan (1) Non-ST elevation ID (NSTEMI): Stent remains widely patent. Good distal flow. No new lesions. Guideline directed medical therapy will include aspirin 81 mg daily, Brilinta 90 mg p.o. twice daily, metoprolol tartrate 25 mg p.o. twice daily, and I will add amlodipine 5 mg daily for anginal relief. Previously was on pravastatin. We will resume statin. If her blood pressures tolerate we could consider long- acting nitrate tomorrow. (2) HTN (hypertension): Blood pressure has been well above target today. She will remain on the metoprolol to tartrate 25 mg p.o. twice daily but we will also add amlodipine 5 mg daily. If she still remains above target then consider long-acting nitrate plus or minus ANATOLY inhibitor/ARB. (3) Atherogenic dyslipidemia: Patient is high risk. High intensity statin therapy is recommended. I do not have her fasting lipid panel or prior therapies. She had been on pravastatin 10 mg only. At this point I think low-dose a atorvastatin 20 mg should be initiated. Titrate for aggressive LDL reduction target. Plan Echocardiogram has been ordered and scheduled for tomorrow. Further recommendations pending results. History of Present Illness Attending Physician: Diallo Mitchell MD History of Present Illness INTERVENTIONAL CARDIOLOGY CONSULTATION: Is a pleasant 88-year-old female who presented this morning with complaints of burning chest pain/indigestion. She told me that this has been intermittent over the past several days but was relieved with use of sucralfate. However, last night the pain did not get any better and she suffered with this all night. She then came to the emergency room where her EKG was concerning for ischemic changes not meeting criteria for ST elevation ID and a positive troponin. Her primary erp analyst was contacted and I was subsequently asked to see her so that she could undergo definitive evaluation by coronary angiography. Her chest pain did resolve with nitro and heparin drip. She underwent diagnostic coronary angiography earlier today and I performed PCI of the tight lesion in the large multi branching OM 2. Good angiographic review results. She was then admitted to the fourth floor. Evidently after eating this evening she developed recurrent chest pain and an EKG was ordered by the resident. Patient was provided nitroglycerin but evidently blood pressure dropped and she lost consciousness for a brief moment. She recovered. The resident notified me of the events and I came to see the patient in the hospital. At that point, she no longer had any chest discomfort and a subsequent EKG was without acute changes. The intervening EKG was not substantially different than the post catheterization EKG but the computer did interpreted as acute ST elevation ID and a heart alert was called while I was in route. After discussing further with the patient and her we decided to return to the Discovery Guide to ensure that there has been no change from her earlier procedure. Patient underwent cardiac catheterization via the left femoral artery approach. Coronary angiography revealed no angiographic changes, no acute lesions, and no coronary explanation for her chest discomfort. She remained without chest pain and has been transferred to the ICU for closer monitoring. Allergies Allergy/AdvReac Type Severity Reaction Status Date / Time cephalexin [From Keflex] Allergy Intermediate Rash Verified 08/01/23 10:39 Iodinated Contrast Media Allergy Intermediate Rash Verified 08/01/23 10:39 Home Medications Medication Instructions Recorded Confirmed Type [facility] 1 tab PO QAM 12/20/17 08/01/23 History ascorbic acid (vitamin C) 1,000 mg 1 g PO QAM 12/20/17 08/01/23 History tablet (Vitamin C) aspirin 81 mg tablet,delayed 81 mg PO QPM 12/20/17 08/01/23 History release glucosamine 1 dose PO BID 12/20/17 08/01/23 History HCl-methylsulfonylmethane 1,500 mg-500 mg/30 mL liquid (Glucosamine Msm) hydrochlorothiazide 25 mg tablet 25 mg PO QAM 12/20/17 08/01/23 History multivitamin 1 tab PO QAM 12/20/17 08/01/23 History pravastatin 10 mg tablet 10 mg PO HS 12/20/17 08/01/23 History loperamide 2 mg capsule 2 mg PO Q4H PRN Diarrhea 11/13/21 08/01/23 History omeprazole 20 mg capsule,delayed 20 mg PO QAM 11/13/21 08/01/23 History release diltiazem HCl 120 mg 120 mg PO DAILY 11/18/21 08/01/23 History capsule,extended release 24 hr (Cardizem CD) oxybutynin chloride 5 mg tablet 5 mg PO HS #90 tabs 12/11/21 08/01/23 Rx clobetasol-emollient 0.05 % 1 applic topical DAILY PRN 08/01/23 08/01/23 History topical cream dermatitis Patient History Medical History Acute hypokalemia Dyspnea Elevated troponin I level Lightheadedness Hx of fracture of foot broken 11/11/21, lt foot, currently using a walker History of COVID-19 05/2021, tested-at [facility], she had same symptoms; not hosp; fatigue, cough-lasted 3 weeks>resolved. Urinary urgency Nocturia False positive HIV serology History of endometriosis Degenerative disc disease Autoimmune disorder NON-SPECIFIC Hypertension "described as uncontrolled" Asthma pt denies; MILD, NO INH Surgical History History of dilatation and curettage Hx of resection of small bowel "done with hysterectomy" Hx of total hysterectomy with removal of both tubes and ovaries History of cardiac radiofrequency ablation 09/21/2021, [place]; f/u dr garber History of cataract surgery Rt./lt. Difficult airway for intubation REPORTS NEEDED PEDIATRIC ETT FOR PRIOR SURGERY-"very long time ago" History of bilateral tubal ligation History of tooth extraction History of tonsillectomy History of adenoidectomy History of arthroscopy LEFT KNEE History of colonoscopy History of appendectomy History of cardiac cath 2015 - [facility] - FAILED STRESS TEST - NO STENTS/ANGIOPLASTY; f/u dr garber, [facility] Social History Smoking Status: Never smoker Second Hand Exposure: No; Do You Dip or Chew Tobacco: No; Hx Alcohol Use: No Hx Substance Use: No Preferred Language: Eritrean Communication Ability: Effective Curriculum Facilitator Required: No Beliefs That Will Affect Care: Zoroastrian Zoroastrian Beliefs: Yarsani Current Living Situation: Spouse Feels Safe at Home: Yes Safety Concerns: Feels Safe At This Time Assistive Devices: Glasses Review of Systems Review of Systems: Negative except as per HPI Physical Exam Constitutional: WD/WN, vitals as above (Elderly, frail. No acute distress.) Neck: No JVD Respiratory: Clear to auscultation bilaterally. No wheezing, rhonchi, or rales. Cardiovascular: Regular rate and rhythm. S4 gallop. Grade 1-2/6 systolic murmur. No edema. Right radial access attempt hematoma which is small. Mostly ecchymosis. Right femoral intact. Musculoskeletal: no cyanosis or clubbing, extremities motor strength 5/5 Neurologic: Cognition is intact. Speech is fluent. No focal deficits. Psychiatric: A+Ox3, euthymic affect Results & Data Vital Signs (Past 12 Hours) Vital Signs Temp Pulse Pulse Resp BP BP Pulse Ox 08/01/23 19:45 82 20 120/64 98 08/01/23 19:45 36.5 C 74 19 157/82 H 97 08/01/23 19:30 78 18 126/72 96 08/01/23 19:15 80 18 121/71 97 08/01/23 19:00 90 16 153/85 H 96 08/01/23 17:11 81 08/01/23 16:41 74 19 153/79 H 98 08/01/23 15:48 08/01/23 15:41 82 18 160/80 H 99 08/01/23 14:41 36.5 C 74 18 158/83 H 98 08/01/23 13:45 80 16 152/74 H 97 08/01/23 13:30 73 16 148/63 H 96 08/01/23 13:10 70 16 165/93 H 96 08/01/23 12:55 80 16 163/74 H 96 08/01/23 11:28 77 159/82 H 95 08/01/23 11:22 08/01/23 11:15 65 20 150/71 H 93 08/01/23 10:30 66 20 146/67 H 100 O2 Del Method O2 Flow Rate 08/01/23 19:45 Nasal Cannula 2 08/01/23 19:45 Room Air 08/01/23 19:30 Room Air 08/01/23 19:15 Room Air 08/01/23 19:00 Room Air 08/01/23 17:11 08/01/23 16:41 Room Air 08/01/23 15:48 Room Air 08/01/23 15:41 Room Air 08/01/23 14:41 Room Air 08/01/23 13:45 Room Air 08/01/23 13:30 Room Air 08/01/23 13:10 Room Air 08/01/23 12:55 Room Air 08/01/23 11:28 Room Air 08/01/23 11:22 Room Air 08/01/23 11:15 Room Air 08/01/23 10:30 Room Air PG Care Time/CCT Total # of Minutes Spent Total Time Spent with Patient: Total time spent is greater than 50% in coordination of care (as documented) at patient's floor/unit and/or counseling patient: Coding Level of Care Code 96539 INT INP/OBS CARE 3/75MIN Diagnoses Non-ST elevation ID (NSTEMI) I21.4 HTN (hypertension) I10 Atherogenic dyslipidemia E78.5
[2023-08-01] MEDS: TICAGRELOR 90 MG TAB PO SCH (22:42)
[2023-08-01] MEDS: METOPROLOL TARTRATE 25 MG TAB PO SCH (22:42)
[2023-08-02 01:10] LABS: Albumin Globulin Ratio 1.1 (0.9-2); Albumin Level 3.7 gm/dl (3.4-5.0); Bilirubin,Total 0.7 mg/dl (0.2-1.0); Creatinine Clr Calc Pharmacy 37.8 ml/min; Est GFR (African American) 59.1 ml/min; Globulin 3.4 gm/dl (2.5-4.0); Potassium 3.9 mmol/L (3.5-5.1); Total Protein 7.1 gm/dl (6.0-8.3)
[2023-08-02 01:16] LABS: Hematocrit (blood only) 33.1 % (37.0-47.0); Hemoglobin 11.4 g/dl (12.0-16.0); Mean Corpuscular Hemoglobin 30.8 pg (25.0-34.0); Mean Corpuscular Hgb Conc 34.4 g/dL (32.0-36.0); Mean Corpuscular Volume 89.5 fL (80.0-100.0); Mean Platelet Volume 9.2 fL (9.4-12.4); Platelet Count 336 K/uL (130-400); RDW Coefficient of Variation 12.5 % (11.5-14.5); RDW Standard Deviation 41.3 fL (36.4-46.3); White Blood Count 10.03 K/ul (4.8-10.8)
[2023-08-02 01:37] LABS: Basophils # (auto) 0.01 K/uL (0.00-0.20); Basophils % (auto) 0.1 %; Immature Granulocytes # (auto) 0.06 K/uL (0.01-0.20); Immature Granulocytes % (auto) 0.6 %; Lymphocytes # (auto) 0.68 K/uL (1.20-3.40); Lymphocytes % (auto) 6.8 %; Monocytes # (auto) 0.19 K/uL (0.11-0.59); Monocytes % (auto) 1.9 %; Neutrophils # (auto) 9.09 K/uL (1.40-6.50); Neutrophils % (auto) 90.6 %; RBC Morphology Unremarkable
[2023-08-02 04:48] LABS: Basophils # (auto) 0.01 K/uL (0.00-0.20); Basophils % (auto) 0.1 %; Hematocrit (blood only) 33.5 % (37.0-47.0); Hemoglobin 11.6 g/dl (12.0-16.0); Immature Granulocytes % (auto) 0.8 %; Lymphocytes # (auto) 1.02 K/uL (1.20-3.40); Lymphocytes % (auto) 7.9 %; Mean Corpuscular Hemoglobin 30.9 pg (25.0-34.0); Mean Corpuscular Hgb Conc 34.6 g/dL (32.0-36.0); Mean Corpuscular Volume 89.1 fL (80.0-100.0); Monocytes # (auto) 0.26 K/uL (0.11-0.59); Neutrophils # (auto) 11.59 K/uL (1.40-6.50); Neutrophils % (auto) 89.2 %; Platelet Count 321 K/uL (130-400); RDW Coefficient of Variation 12.6 % (11.5-14.5); Red Blood Count 3.76 M/uL (4.20-5.40); White Blood Count 12.98 K/ul (4.8-10.8)
[2023-08-02 04:56] LABS: BUN Creatinine Ratio 18.4 (10-20); Calcium 8.9 mg/dl (8.6-10.3); Chol HDL Ratio 1.8 (0-5); Creatinine Clr Calc Pharmacy 36.7 ml/min; Est GFR (Non-African American) 49.2 ml/min; Potassium 3.8 mmol/L (3.5-5.1)
[2023-08-02] MEDS: SUCRALFATE 1 GM TAB PO SCH (07:46)
[2023-08-02] MEDS: amLODIPine BESYLATE 5 MG TAB PO SCH (07:46)
[2023-08-02] MEDS: PANTOprazole 40 MG TAB PO SCH (07:46)
[2023-08-02] MEDS: ATORVASTATIN 20 MG TAB PO SCH (07:47)
[2023-08-02] MEDS: ASPIRIN 81 MG ECTAB PO SCH (10:15)
[2023-08-02 12:24] LABS: Magnesium 2.1 mg/dl (1.7-2.4)
[2023-08-02 12:29] LABS: Phosphorus 3.5 mg/dl (2.5-4.9)
--- NOTE | 2023-08-02 12:29 | Electrocardiogram Report ---
Test Reason : Blood Pressure : / mmHG Vent. Rate : 080 BPM Atrial Rate : 080 BPM P-R Int : 180 ms QRS Dur : 096 ms QT Int : 450 ms P-R-T Axes : 086 064 093 degrees QTc Int : 519 ms Normal sinus rhythm Possible Left atrial enlargement ST elevation consider inferior injury or acute infarct Prolonged QT Consider right ventricular involvement in acute inferior infarct Abnormal ECG When compared with ECG of 01-AUG-2023 13:12, MT interval has decreased Inverted T waves have replaced nonspecific T wave abnormality in Lateral leads Confirmed by Yanick Carrizales ([id number]) on 08/02/2023 12:29:03 PM Referred By: REFERRED SELF Confirmed By:Francis Carrizales
--- NOTE | 2023-08-02 12:31 | Electrocardiogram Report ---
Test Reason : Blood Pressure : / mmHG Vent. Rate : 074 BPM Atrial Rate : 074 BPM P-R Int : 204 ms QRS Dur : 096 ms QT Int : 470 ms P-R-T Axes : 083 052 -52 degrees QTc Int : 521 ms Normal sinus rhythm Inferior-posterior infarct Prolonged QT Consider right ventricular involvement in acute inferior infarct Abnormal ECG When compared with ECG of 01-AUG-2023 20:07, (unconfirmed) Inverted T waves have replaced nonspecific T wave abnormality in Anterior leads Confirmed by Yanick Carrizales ([id number]) on 08/02/2023 12:30:35 PM Referred By: REFERRED SELF Confirmed By:Francis Carrizales
--- NOTE | 2023-08-02 12:36 | Electrocardiogram Report ---
Test Reason : Blood Pressure : / mmHG Vent. Rate : 076 BPM Atrial Rate : 076 BPM P-R Int : 200 ms QRS Dur : 096 ms QT Int : 448 ms P-R-T Axes : 087 056 079 degrees QTc Int : 504 ms Normal sinus rhythm Possible Inferior infarct , age undetermined inferior injury pattern Abnormal ECG When compared with ECG of 01-AUG-2023 19:22, (unconfirmed) Inverted T waves have replaced nonspecific T wave abnormality in Inferior leads Confirmed by Yanick Carrizales ([id number]) on 08/02/2023 12:35:56 PM Referred By: REFERRED SELF Confirmed By:Francis Carrizales
--- NOTE | 2023-08-02 12:38 | Electrocardiogram Report ---
Test Reason : Blood Pressure : / mmHG Vent. Rate : 061 BPM Atrial Rate : 061 BPM P-R Int : 206 ms QRS Dur : 094 ms QT Int : 508 ms P-R-T Axes : 070 057 249 degrees QTc Int : 511 ms Normal sinus rhythm Prolonged QT Abnormal ECG When compared with ECG of 01-AUG-2023 21:53, (unconfirmed) No significant change was found Confirmed by Yanick Carrizales ([id number]) on 08/02/2023 12:38:46 PM Referred By: REFERRED SELF Confirmed By:Francis Carrizales
--- NOTE | 2023-08-02 12:51 | XCELERA ---
[id number]
--- NOTE | 2023-08-02 14:58 | Hospitalist Progress Note ---
Date of Service August 02, 2023 Assessment & Plan (1) Acute KS: Plan: Inferiorposterior distribution. She underwent left heart catheterization yesterday, July 31, with PTCA and stent placement in the obtuse marginal branch from the right femoral approach. She had recurrent chest pain last night and underwent heart catheterization again and the stent was found to be patent. It was thought she may have had some vasospasm producing her symptoms and she is now on amlodipine. She is currently stable. Cardiac echo reveals mild LVH with mildly reduced ejection fraction of 40% with hypokinesis involving inferiorposteriorlateral wall. Pravastatin has been switched to a atorvastatin. Her cholesterol is 149 and LDL 54. I explained proper use of sublingual nitroglycerin to her for outpatient use should any chest discomfort recur. (2) Chronic kidney disease with active medical management without dialysis, stage 3 (moderate): Plan: Monitor intake and output. Serial lab. Stable (3) HTN (hypertension): Plan: Currently stable. Continue current medical management Plan Hopeful discharge to home tomorrow, August 02 Admission and Anticipated Discharge Date Admission Date: August 01, 2023 Subjective Alert and oriented. No distress. Vital signs are stable. Unfortunately, last evening she had recurrent chest pain and was taken back to the [facility] where she underwent repeat heart catheterization from a left femoral approach. The previously placed obtuse marginal stent was patent. She may have had some vasospasm producing her symptoms and she is now on amlodipine. Pravastatin has been switched to atorvastatin. Cholesterol is 149 and LDL 54. Cardiac echo reveals mild LVH with ejection fraction of 45%, mildly reduced, with inferiorposteriorlateral hypokinesis. Hopefully she can be discharged to home tomorrow, August 02, if she remains stable. Review of Systems 2 Review of Systems: Constitutional-no fever or chills ENT-no blurred vision, no double vision, no epistaxis, no sore throat Respiratory-no cough, no wheezing, no shortness of breath Cardiac-no palpitations, no syncope. Recent and current chest discomfort without radiation GI-no nausea, vomiting, diarrhea, melena, hematochezia -no urinary retention, no urinary incontinence, no dysuria, no hematuria Musculoskeletal-no joint pain, no muscle tenderness. Left femoral artery cath site is unremarkable. Right femoral artery cath site has mild swelling but no current bleeding Skin-no bruising, no rashes, no pruritus Neuro-no isolated weakness, no paresthesia Psych-no depression, no anxiety Physical Exam 2 Physical Exam: General-alert and oriented x3, no fever, no chills HEENT-head atraumatic and normocephalic, pupils equal and reactive to light, extraocular muscles intact Neck-no lymphadenopathy or thyromegaly, trachea midline Chest-clear to auscultation. No rales, wheezing or rhonchi Cardiac-regular rate and rhythm, normal S1 and S2 Abdomen-normal bowel sounds, no hepatosplenomegaly Extremities-no cyanosis, clubbing, or edema Neuro-cranial nerves II through XII intact, motor and sensory function within normal limits, strength symmetrical, no focal deficits Psych-normal affect, normal mood Results & Data Results & Data Vital Signs (Past 12 Hours) Vital Signs Temp Pulse Resp BP Pulse Ox O2 Del Method 08/02/23 06:00 63 15 121/51 L 94 Room Air 08/02/23 05:00 67 17 124/59 L 94 Room Air 08/02/23 04:00 36.6 C 60 14 155/70 H 96 Room Air 08/02/23 03:00 61 16 143/62 H 93 Room Air Laboratory Results 08/02/23 04:24 08/02/23 04:23 PG Care Time/CCT Total # of Minutes Spent Total Time Spent with Patient: Total time spent is greater than 50% in coordination of care (as documented) at patient's floor/unit and/or counseling patient: Coding Level of Care Code 94913 SUB INP/OBS CARE 2/35MIN Diagnoses Acute KS I21.9 Chronic kidney disease with active medical management without dialysis, stage 3 (moderate) N18.30 HTN (hypertension) I10
--- NOTE | 2023-08-02 16:33 | Cardiology Progress Note ---
Date of Service August 02, 2023 Assessment & Plan (1) Non-ST elevation DC (NSTEMI): Plan: Status post PCI of the large OM 2 branch of the circumflex. Good angiographic results. Mild nonocclusive disease elsewhere as described in the cath report. Now, her heart rate and blood pressure are at target. She will continue guideline directed medical therapy for secondary prevention of coronary disease with aspirin, beta-mirella, and statin. Recommend ultrasound evaluation of the right groin. After that, she would be okay to get up and ambulate about the room with assistance as long as the ultrasound has no concerning findings. (2) Atherogenic dyslipidemia: Plan: Patient is considered high risk. Previously she was not as she did not have known coronary disease or PAD. She has been started on a atorvastatin 20 mg daily. (3) HTN (hypertension): Plan: Blood pressure is now under control. Taking metoprolol tartrate 25 mg p.o. twice daily, and amlodipine 5 mg daily. Amlodipine may also help with any vasospastic component to her chest pain. (4) Ischemic cardiomyopathy: Plan: EF mildly reduced at 40 to 45%. Segmental wall motion abnormalities consistent with her large OM 2 distribution infarct. Suspect her EF will improve with revascularization and optimize medical therapy. Currently tolerating metoprolol. She had a large total dose of IVP contrast yesterday so we did not attempt use of an ANATOLY inhibitor/ARB. This certainly should be considered prior to discharge. For now we are using amlodipine for vasospasm and blood pressure control but if necessary we could change this to long acting nitrate once she is stable. So far she does not appear to require a loop diuretic. Admission and Anticipated Discharge Date Admission Date: August 01, 2023 Subjective Patient underwent repeat coronary angiography last evening for recurrent onset of chest discomfort. Fortunately, the catheterization revealed patent stent and no new occlusions. Overnight in the ICU she tells me she has had no recurrence of chest discomfort. When I saw her this morning she did have significant oozing from the right femoral access site but not from the left. Pressure was held and oozing stopped. She also had bruising at the radial access attempt. She denies shortness of breath or other complaints. She was asking when she cou ld get up and move around. Unfortunately her was not present at that time. Review of Systems Review of Systems: Negative except as per HPI Physical Exam Constitutional: WD/WN, vitals as above (Elderly, frail. No acute distress.) Neck: No JVD Respiratory: Clear to auscultation bilaterally. No wheezing, rhonchi, or rales. Cardiovascular: Regular rate and rhythm. S4 gallop. Grade 1-2/6 systolic murmur. No edema. Right radial access attempt hematoma which is small. Mostly ecchymosis. Right femoral intact without hematoma but there was oozing into the bandage. Left femoral access intact. Musculoskeletal: no cyanosis or clubbing, extremities motor strength 5/5 Neurologic: Cognition is intact. Speech is fluent. No focal deficits. Psychiatric: A+Ox3, euthymic affect Results & Data Vital Signs (Past 12 Hours) Vital Signs Pulse Resp BP Pulse Ox O2 Del Method 08/02/23 06:00 63 15 121/51 L 94 Room Air 08/02/23 05:00 67 17 124/59 L 94 Room Air PG Care Time/CCT Total # of Minutes Spent Total Time Spent with Patient: Total time spent is greater than 50% in coordination of care (as documented) at patient's floor/unit and/or counseling patient: Coding Level of Care Code 49750 SUB INP/OBS CARE 2/35MIN Diagnoses Non-ST elevation DC (NSTEMI) I21.4 Atherogenic dyslipidemia E78.5 HTN (hypertension) I10 Ischemic cardiomyopathy I25.5
--- NOTE | 2023-08-02 23:57 | Ultrasound Report ---
Exam(s): US SOFT TISSUE EXAM: US Right Soft Tissue Groin CLINICAL HISTORY: Reason for exam: right groin hematoma after heart cath. TECHNIQUE: Real-time ultrasound of the right groin with image documentation. COMPARISON: No relevant prior studies available. FINDINGS: No hematoma identified within the right groin. Per the tech notes evaluation was difficult because of an overlying compression dressing. IMPRESSION: No hematoma identified within the right groin. Electronically signed by: Dale Ortiz MD 08/02/23 23:56 PM
[2023-08-03 05:20] LABS: Basophils # (auto) 0.02 K/uL (0.00-0.20); Basophils % (auto) 0.1 %; Hematocrit (blood only) 28.5 % (37.0-47.0); Hemoglobin 9.8 g/dl (12.0-16.0); Immature Granulocytes # (auto) 0.18 K/uL (0.01-0.20); Immature Granulocytes % (auto) 0.9 %; Lymphocytes # (auto) 1.93 K/uL (1.20-3.40); Lymphocytes % (auto) 10.1 %; Mean Corpuscular Hemoglobin 30.8 pg (25.0-34.0); Mean Corpuscular Hgb Conc 34.4 g/dL (32.0-36.0); Mean Corpuscular Volume 89.6 fL (80.0-100.0); Mean Platelet Volume 9.5 fL (9.4-12.4); Monocytes % (auto) 6.3 %; Neutrophils # (auto) 15.79 K/uL (1.40-6.50); Neutrophils % (auto) 82.6 %; Platelet Count 300 K/uL (130-400); RDW Coefficient of Variation 12.7 % (11.5-14.5); RDW Standard Deviation 41.6 fL (36.4-46.3); Red Blood Count 3.18 M/uL (4.20-5.40); White Blood Count 19.12 K/ul (4.8-10.8)
[2023-08-03 05:30] LABS: BUN Creatinine Ratio 26.2 (10-20); Calcium 8.6 mg/dl (8.6-10.3); Creatinine Clr Calc Pharmacy 35.3 ml/min; Est GFR (African American) 54.4 ml/min; Potassium 3.8 mmol/L (3.5-5.1)
--- NOTE | 2023-08-03 09:53 | Electrocardiogram Report ---
Test Reason : Blood Pressure : / mmHG Vent. Rate : 063 BPM Atrial Rate : 063 BPM P-R Int : 204 ms QRS Dur : 092 ms QT Int : 488 ms P-R-T Axes : 088 068 -88 degrees QTc Int : 499 ms Normal sinus rhythm Prolonged QT Abnormal ECG When compared with ECG of 02-AUG-2023 06:21, T wave inversion no longer evident in Anterior leads Confirmed by Yanick Carrizales ([id number]) on 08/03/2023 9:52:36 AM Referred By: REFERRED SELF Confirmed By:Francis Carrizales
--- NOTE | 2023-08-03 10:05 | Discharge Summary ---
Date of Service August 03, 2023 Admission HPI Per Admitting Provider 88-year-old white female with acute inferior posterior VT. She states she has had chest discomfort off and on for the past 3 to 4 days but at the time of my examination she was having steady chest discomfort. Heparin infusion was already started and cardiology has been notified. I notified them again that she was having ongoing chest discomfort and ordered intravenous morphine and topical nitrates. Dr. Gonzalez will be seeing the patient as soon as possible to determine if she can immediately go for heart catheterization procedure. Fortunately, her chest x-ray is unremarkable and her lung sounds are clear. V ital signs are stable. Cardiac rhythm is normal sinus at this time. She denies any radiation of her discomfort but states that she had intermittent shortness of breath with the chest discomfort while at home. She denies any diaphoresis Principal Diagnosis Acute inferior posterior wall VT, suspected vasospasm causing recurrent chest pain Discharge Exam General-alert and oriented x3, no fever, no chills HEENT-head atraumatic and normocephalic, pupils equal and reactive to light, extraocular muscles intact Neck-no lymphadenopathy or thyromegaly, trachea midline Chest-clear to auscultation. No rales, wheezing or rhonchi Cardiac-regular rate and rhythm, normal S1 and S2 Abdomen-normal bowel sounds, no hepatosplenomegaly Extremities-no cyanosis, clubbing, or edema Neuro-cranial nerves II through XII intact, motor and sensory function within normal limits, strength symmetrical, no focal deficits Psych-normal affect, normal mood Discharge Data Allergies Allergy/AdvReac Type Severity Reaction Status Date / Time cephalexin [From Keflex] Allergy Intermediate Rash Verified 08/01/23 10:39 Iodinated Contrast Media Allergy Intermediate Rash Verified 08/01/23 10:39 Consultations 08/01/23 08:35 ED Decision to Admit Stat 08/01/23 13:00 Consult Cardiac Rehabilitation Routine Procedures Performed Operation Date: 08/01/23 20:30 Actual Procedures p Cineradiography w/Routine Exam - Guzman Gonzalez MD, PhD p Ultrasound Vascular Access - Guzman Gonzalez MD, PhD p Cath, Coronaries ONLY (no LV) - Guzman Gonzalez MD, PhD Ordered Studies 08/01/23 09:14 CL Cath Imgs for PACS use only Stat 08/01/23 20:01 CL Cath Imgs for PACS use only Stat 08/02/23 17:59 US soft tissue groin Urgent Hospital Course (1) Acute VT: Inferiorposterior distribution. She underwent left heart catheterization on July 31 with PTCA and stent placement in the obtuse marginal branch from the right femoral approach. She had recurrent chest pain July 31 evening and underwent heart catheterization again and the stent was found to be patent. It was thought she may have had some vasospasm producing her symptoms and she is now on amlodipine. She is currently stable. Cardiac echo reveals mild LVH with mildly reduced ejection fraction of 40% with hypokinesis involving inferiorposteriorlateral wall. Pravastatin has been switched to a rick rvastatin. Her cholesterol is 149 and LDL 54. I explained proper use of sublingual nitroglycerin to her for outpatient use should any chest discomfort recur. Fortunately, the right groin ultrasound is negative for hematoma (2) Chronic kidney disease with active medical management without dialysis, stage 3 (moderate): Monitor intake and output. Serial lab. Stable (3) HTN (hypertension): Currently stable. Continue current medical management Plan Home today, August 02 Total Time Total Time Spent Total Time Spent (In Minutes): 45-minute Discharge Plan Discharge Items Patient Disposition: Home - Self-Care Reason For Visit: ACUTE VT Discharge Diagnosis: Acute inferior posterior VT Activity: Per Instructions section Non-emergency contact: Primary Care Provider and Building Mechanic Call non-emergency contact if: you have any medication questions, your symptoms worsen, your pain is not controlled, you have a fever, your wound has increased redness and your wound has increased drainage Follow-up/Referrals: Johana Edouard DO [Primary Care Provider] - Diet: Regular and Heart Healthy Addtl Attending Provider Instructions: ACTIVITY RECOMMENDATIONS: It is common to feel weak and fatigue for a few days. * Do not drive or operate any motorized equipment for the next three days. * Limit stair usage (2 or 3 trips a day only) for the next three days. * Do not lift anything heavier than 10 pounds for the next three days. * Do not engage in vigorous exercise or any sports for the next five days. * You may shower the day after your procedure, but do not immerse the area for three days. Cleanse the site gently with soap and water. SPECIAL CARE INSTRUCTIONS: * You may replace the pressure dressing or band-aid the morning after the procedure. * After your procedure, it is normal to have a small bruise or small lump at the site. Examine your site daily for any change in the bruise or lump, redness, swelling, drainage or numbness. Notify your doctor if any change. BLEEDING: * If there is a small amount of bleeding at the site, lie down and apply firm pressure with a clean cloth for ten minutes. When the bleeding stops, lie quietly keeping the procedure limb straight for six hours. Notify your doctor as soon as possible. * If the bleeding does not stop after ten minutes or if there is a large amount of bleeding or spurting, call 911 immediately. Continue to lie down and hold firm pressure until help arrives. SKIN IRRITATION: * You may experience some redness and/or swelling in the area where radiation was administered. If any skin irritation occurs, please contact your family physician. FOLLOW UP VISIT: Keep any scheduled doctor appointments. Pending Studies at Discharge: No Stand-Alone Forms: [facility], Smoking Cessation Medications and DC Order Prescriptions: New atorvastatin 20 mg Tablet 20 mg PO QAM Qty: 30 11RF amlodipine [Norvasc] 5 mg Tablet 5 mg PO QAM Qty: 30 11RF metoprolol tartrate 25 mg Tablet 25 mg PO BID Qty: 60 11RF Brilinta 90 mg Tablet 90 mg PO BID Qty: 180 3RF nitroglycerin 0.4 mg tablet, sublingual 0.4 mg sublingual Q5M PRN (Reason: chest pain) Qty: 25 0RF Continued oxybutynin chloride 5 mg tablet 5 mg PO HS Qty: 90 3RF multivitamin Tablet 1 tab PO QAM ascorbic acid (vitamin C) [Vitamin C] 1,000 mg Tablet 1 g PO QAM aspirin 81 mg Tablet,Delayed Release (Dr/Ec) 81 mg PO QPM Glucosamine Msm 1,500-500 mg/30 mL Liquid 1 dose PO BID [facility] 1 tab PO QAM loperamide 2 mg Capsule 2 mg PO Q4H PRN (Reason: Diarrhea) Rx Instructions: administer after each loose stool until symptoms controlled; do not exceed 8 mg per 24 hrs clobetasol-emollient 0.05 % cream 1 applic TOPICAL DAILY PRN (Reason: dermatitis) Discontinued pravastatin 10 mg Tablet 10 mg PO HS hydrochlorothiazide 25 mg Tablet 25 mg PO QAM omeprazole 20 mg Capsule,Delayed Release(Dr/Ec) 20 mg PO QAM diltiazem HCl [Cardizem CD] 120 mg Capsule,Extended Release 24hr 120 mg PO DAILY Discharge Orders: Discharge Order (Routine); Ordered 08/03/23 Ordered By: Diallo Mitchell Admission Data Admit Date/Time: 08/01/23 11:45 Attending Provider: Diallo Mitchell Admit Provider: Diallo Mitchell Primary Care Provider: Johana Edouard Other Providers: Diallo Mitchell Coding Level of Care Code 92263 INP/OBS DISCH >30 MIN Diagnoses Acute VT I21.9 Chronic kidney disease with active medical management without dialysis, stage 3 (moderate) N18.30 HTN (hypertension) I10
== END 2023-08-03 11:00 | disposition home or self-care (01) | DRG 322 ==
LOC: SUATTDRO → ED 07:14 → EDINP 09:01 → 4W 11:44 → OR 11:44 → 4W 11:45 → 1E 21:42
PROC: CLB.CCO (2023-08-01 11:00)